=== PATIENT | female | born 1950 | race Caucasian/White ===

== ENCOUNTER → 2019-07-27 16:05 | Outpatient (CLI) | payer MEDICARE, SELFPAY ==
--- NOTE | 2019-07-27 16:23 | VDLE_ITS ---
Reason For Study: RLE PAIN RIGHT GSV is normal. CFV is compressible, spontaneous, phasic, competent and demonstrates normal augmentation. FV is compressible, spontaneous, phasic, competent and demonstrates normal augmentation. POP V is compressible, spontaneous, phasic, competent and demonstrates normal augmentation. T/P Trunk is compressible. PTV is compressible. RT PerV is compressible. Procedure Exam performed in department. The exam was diagnostic. A preliminary report was called and/or faxed to DR. Tina Staples @ [phone] @ 4:40 pm. Interpretation Summary Deep veins of the right lower extremity are patent and compressible segmentally. There is no evidence of right lower extremity deep vein thrombosis. Valvular competence appears intact within the proximal deep venous system on the right . The right great saphenous vein appears patent and compressible segmentally. Ordering Physician: Facundo Staples Referring Physician: Joe Mac Performed By: Felicia Tom, WALESKA, RVT
== END ==
PROVIDERS: Referring Provider Podiatrist Foot & Ankle Surgery; Visit Provider Podiatrist Foot & Ankle Surgery
DX: M79.661 Pain in right lower leg (principal)
CPT/HCPCS: 93971

== ENCOUNTER 2022-02-18 03:48 | Inpatient (IN) | payer MEDICARE, SELFPAY ==
[2022-02-18] VITALS (29 sets, daily range): BP systolic 89–214; BP diastolic 49–128; PULSE 85–125; RESP 12–31; TEMP 36.1–36.8; O2SAT 90–99; BMI 31.8; BMI 32.8
--- NOTE | 2022-02-18 03:55 | RAD_ITS ---
STUDY: X-RAY CHEST REASON FOR EXAM: Female, 71 years old. Difficulty breathing. TECHNIQUE: AP COMPARISON: None. FINDINGS: Hazy interstitial prominence in both lungs. No evidence of pneumothorax, pleural effusion or consolidation. The heart might be mildly enlarged, not well evaluated with AP portable technique. Trachea midline, no mediastinal widening. RAD/Chest 1 View (Portable) IMPRESSION: Hazy interstitial prominence in both lungs suspicious for either mild edema or atypical pneumonia. There may be mild cardiomegaly. Electronically Signed: Jayson Hi MD at 4:39 EDT Reading Location ID and State: [facility] / [place] Tel , Service support ,
--- NOTE | 2022-02-18 03:55 | EKG12_ITS ---
Test Reason : DYSRHYTHMIA Blood Pressure : / mmHG Vent. Rate : 116 BPM Atrial Rate : 116 BPM P-R Int : 132 ms QRS Dur : 108 ms QT Int : 336 ms P-R-T Axes : 068 068 060 degrees QTc Int : 467 ms Sinus tachycardia with frequent Premature ventricular complexes Nonspecific ST abnormality Abnormal ECG Confirmed by LISHA BUENROSTRO, MOY ([id number]), online content editor NATIVIDAD PARKS ([id number]) on 02/19/2022 9:48:39 AM Referred By: SAMUEL Confirmed By:MOY HUSAIN MD
[2022-02-18] MEDS: Nitroglycerin SL (ED/IMG/CATH) 0.4 MG TABLET SL (03:57)
[2022-02-18 04:16] LABS: Absolute Lymphocyte Count 8.02 X10^3/uL (0.83-4.51); Absolute Neutrophil Count 3.9 X10^3/uL (2.0-7.7); Basophil# 0.08 X10^3/uL; Basophil% 0.6 % (0-1); Differential Indicated SCAN CRITERIA MET; Eosinophil# 0.22 X10^3/uL; Eosinophils% 1.7 % (0-5); Hematocrit 45.8 % (37-47); Hemoglobin 14.9 g/dL (12.0-15.0); Lymphocyte # 8.02 X10^3/ul (0.83-4.51); Lymphocyte % 61.7 % (19-41); Mean Corp Hgb Conc 32.5 g/dL (32-36); Mean Corpuscular Hgb 31.3 pg (27.0-32.0); Mean Corpuscular Volume 96.2 fL (81-99); Mean Platelet Vol. 9.4 fl (6.2-12.0); Monocyte# 0.75 X10^3/uL; Monocyte% 5.8 % (0-10); NRBC Flagged by Analyzer 0 % (0-5); POSITIVE DIFFERENTIAL YES; POSITIVE MORPHOLOGY YES; Platelet Count 393 K/mm3 (150-450); RBC Distribution Width CV 13.2 % (11.6-14.6); RBC Distribution Width SD 46.6 fl (35.1-43.9); Red Blood Count 4.76 M/mm3 (4.2-5.4)
[2022-02-18 04:33] LABS: Anion Gap 13 (5-15); BUN 10 mg/dL (7-18); BUN/Creat Ratio 11.9 RATIO (10-20); Calcium,Total 8.9 mg/dL (8.5-10.1); Chloride 104 mmol/L (98-107); Creatinine, Serum 0.84 mg/dL (0.55-1.02); EST Glomerular Filtration Rate 71 mL/min (>60); Est Glom Filt Rate - Afr Amer 86 mL/min (>60); Estimated Creatinine Clearance 54.58 ml/min; Glucose 258 mg/dL (74-106); Magnesium 2.3 mg/dL (1.6-2.6); Potassium 4.3 mmol/L (3.5-5.1); Sodium Level 137 mmol/L (136-145); Troponin-I HS 54 pg/mL (3.0-54.0)
--- NOTE | 2022-02-18 04:44 | CT_ITS ---
STUDY: CTA CHEST REASON FOR EXAM: Female, 71 years old. Short of breath. Elevated WBC, low O2. RADIATION DOSAGE (If Supplied By Facility): CTDIvol = ( 12.62 ) mGy, DLP = ( 518.75 ) mGycm TECHNIQUE: The examination was performed with the intravenous administration of IV 100mL Isovue-370. Post-processing of the angiographic images was performed, with MIP reconstructed images. Individualized dose optimization techniques were used for this CT. COMPARISON: 02/18/2022 chest radiograph FINDINGS: Pulmonary arteries: No pulmonary embolus. Normal caliber. Heart: Thick-walled prominent in size left ventricle. No evidence of right heart strain. Calcific plaque within the coronary arteries, not well evaluated because of cardiac motion. Aorta: No thoracic aortic dissection or aneurysm. Lungs, pleura: Diffuse interstitial prominence and scattered patchy groundglass opacities throughout both lungs with small pleural effusions. Central airways patent. No consolidation or pneumothorax. Mediastinum: Mild paratracheal and bilateral hilar adenopathy. No other mass, no hematoma. Osseous:No acute osseous abnormality. Chest wall: No concerning findings. Upper abdomen: No acute findings. Any findings described in the findings sections and not included in the impression are incidental and do not require imaging follow-up. CT/CTA Chest W/WO Contrast IMPRESSION: Findings most likely represent congestive heart failure with pulmonary edema and small pleural effusions. Atypical pneumonia while possible is less likely particularly given the symmetry of the findings and the cardiomegaly. No pulmonary embolus or thoracic aortic dissection or aneurysm. Electronically Signed: Jayson Hi MD at 5:38 EDT Reading Location ID and State: [facility] / [place] Tel , Service support ,
[2022-02-18] MEDS: Furosemide 40 MG/4 ML Vial IV (04:51)
[2022-02-18 05:07] LABS: BNP,B-Type NATRIURETIC PEPTIDE 561.4 pg/mL (0-100)
--- NOTE | 2022-02-18 05:50 | EX.ED.DYSGE1 ---
HPI History of Present Illness Chief Complaint: Shortness of Breath Narrative Narrative: Patient is a 71-year-old female who states she has no significant past medical history and takes nothing but vitamins. She states she went to bed feeling normal then awoke early this morning with shortness of breath. She states she does not history of smoking or lung disorder and does not need supplemental oxygen and with the sudden onset of shortness of breath was concerned and presents for evaluation [facility] Home Medications ascorbate calcium (vitamin C) 500 mg capsule 100 mg PO DAILY 02/18/22 [History Last Taken Unknown] cholecalciferol (vitamin D3) 125 mcg (5,000 unit) tablet (Vitamin D3) 125 mcg PO DAILY 02/18/22 [History Last Taken Unknown] vitamin E 400 unit tablet 400 mg PO DAILY 02/18/22 [History Last Taken Unknown] Allergy/AdvReac Type Severity Reaction Status Date / Time No Known Allergies Allergy Verified 02/18/22 04:01 Family History Other Heart disease Surgical History H/O: hysterectomy Hx of appendectomy Hx of cholecystectomy Social History Smoking Status: Never smoker ROS ROS ED Constitutional Constitutional ED: Denies chills or fever(s) ENT ENT ED: Denies sore throat Cardiovascular Cardiovascular: Reports orthopnea; Denies chest pain Respiratory/Chest Respiratory/Chest: Reports dyspnea and orthopnea; Denies cough Gastrointestinal Gastrointestinal: Reports nausea; Denies abdominal pain, diarrhea or vomiting Genitourinary Genitourinary ED: Denies dysuria Musculoskeletal Musculoskeletal: Denies myalgias Integumentary Denies rash Neurologic Neurologic: Denies headache(s) Hematologic/Lymphatic Hematologic/Lymphatic: Denies easy bleeding or easy bruising EXAM Physical Exam Const Vital Signs: 02/18/22 03:48 02/18/22 03:48 02/18/22 03:56 Temperature 98.2 F Temperature Source Temporal Pulse Rate 89 Respiratory Rate 17 Respiratory Effort Respiratory Depth Respiratory Pattern Blood Pressure 214/128 H Blood Pressure Mean 156 Pulse Ox 90 94 Oxygen Delivery Method Nasal Cannula Bi-pap Oxygen Flow Rate (L/min) 6 Fraction of Inspired Oxygen (FIO2) 50 02/18/22 04:03 02/18/22 03:57 02/18/22 04:05 Temperature Temperature Source Pulse Rate 115 H Respiratory Rate Respiratory Effort Labored Respiratory Depth Respiratory Pattern Blood Pressure 194/128 H 190/119 H Blood Pressure Mean 142 Pulse Ox Oxygen Delivery Method Oxygen Flow Rate (L/min) Fraction of Inspired Oxygen (FIO2) 02/18/22 03:55 02/18/22 03:55 02/18/22 04:08 Temperature Temperature Source Pulse Rate 125 H Respiratory Rate 31 H 31 H Respiratory Effort Short of Breath Labored Accessory Muscle Use Respiratory Depth Shallow Respiratory Pattern Tachypnea Tachypnea Blood Pressure 178/121 H Blood Pressure Mean 140 Pulse Ox 95 95 Oxygen Delivery Method Bi-pap Oxygen Flow Rate (L/min) Fraction of Inspired Oxygen (FIO2) 40 40 02/18/22 05:09 02/18/22 05:30 Temperature Temperature Source Pulse Rate 97 Respiratory Rate 20 H Respiratory Effort Respiratory Depth Respiratory Pattern Blood Pressure 212/88 H 123/76 H Blood Pressure Mean 129 91 Pulse Ox 97 Oxygen Delivery Method Bi-pap Oxygen Flow Rate (L/min) Fraction of Inspired Oxygen (FIO2) 50 Positive well nourished, well developed and obese Constitutional Narrative: Patient is in moderate to severe respiratory distress with tachypnea retractions and accessory muscle use General Appearance ED: well developed Nutritional Appearance: obese HEENT Reports moist mucous membranes HEENT Narrative: No tongue or lip swelling no oral lesions no airway edema or compromise Eyes PERRL and EOMs intact bilaterally Neck supple and no JVD Resp Resp Narrative: Patient is in moderate to severe respiratory distress with tachypnea retractions and accessory muscle use. Breath sounds are diminished throughout with diffuse crackles present. Patient can only speak in 1-2 word sentences. Cardio regular rhythm Rate: tachycardic and other Other Details: Radial pulses are plus 2 out of 4 bilaterally they are equal and symmetric Carotid pulses are equal and symmetric as well GI non-tender and non-distended GI Narrative: Abdomen is soft nontender nondistended with hypoactive bowel sounds no voluntary guarding or rigidity. No pulsatile mass or fluid wave Auscultation: hypoactive bowel sounds Palpation: soft Extremity normal to inspection Extremity Narrative: No asymmetric edema no pitting edema negative Homans' sign bilaterally Neuro oriented x3 and CN's II-XII intact bilaterally Sensorium / Orientation: alert Psych Psych Narrative: Patient has a nervous/anxious affect Skin no rashes or lesions noted MDM MDM MDM Narrative Medical decision making narrative: Patient presented to the ER and respiratory distress with tachypnea accessory muscle use and retractions. Her room air pulse ox was only 80%. Her sudden onset of symptoms coupled with crackles diffusely is consistent with flash pulmonary edema although she did not have any frothy pink sputum. She was placed on BiPAP and given a sublingual nitro secondary to this. Once her kidney function returned as normal she was also given Lasix. The BiPAP and medication reduced her work of breathing and her pulse ox improved to 97% and her blood pressure normalized. The chest x-ray did not reveal any severe edema which is not consistent with her presentation so elected to perform a CTA. CTA revealed changes consistent with congestive heart failure and pulmonary edema which is most consistent with her physical exam. At this time the patient will be admitted to the ICU because of her BiPAP need and congestive heart failure. Medicine was contacted and does agree to accept the patient at this time. The patient's troponin did elevate from 54-194 but she does not complain of chest discomfort and he has no ST elevation noted on her EKG and therefore I feel this elevation is related to the pulmonary edema and vascular congestion and not true cardiac so therefore be trended in the ICU. Lab Data Attestation: I reviewed the patient's lab results. Labs: Laboratory Results - last 24 hr 02/18/22 02/18/22 02/18/22 04:00 04:00 04:00 WBC 13.0 H RBC 4.76 Hgb 14.9 Hct 45.8 MCV 96.2 MCH 31.3 MCHC 32.5 RDW Std Deviation 46.6 H RDW Coeff of Benja 13.2 Plt Count 393 MPV 9.4 Immature Gran % (Auto) 0.200 Neut % (Auto) 30.0 L Lymph % (Auto) 61.7 H [place] % (Auto) 5.8 Eos % (Auto) 1.7 Baso % (Auto) 0.6 Absolute Neuts (auto) 3.9 Absolute Lymphs (auto) 8.02 H Nucleated RBC % 0 Sodium 137 Potassium 4.3 Chloride 104 Carbon Dioxide 20.0 L Anion Gap 13 BUN 10 Creatinine 0.84 Estim Creat Clear Calc 54.58 Est GFR (MDRD) Af Amer 86 Est GFR (MDRD) Non-Af 71 BUN/Creatinine Ratio 11.9 Glucose 258 H Calcium 8.9 Magnesium 2.3 Troponin I High Sens 54 B-Natriuretic Peptide 561.4 H Radiography Diagnostic Testing: Clinical Impression(s) from Imaging Studies Chest X-Ray 02/18/22 03:55 IMPRESSION: Hazy interstitial prominence in both lungs suspicious for either mild edema or atypical pneumonia. There may be mild cardiomegaly. Electronically Signed: Jayson Hi MD at 4:39 EDT Reading Location ID and State: [facility] Tel , Service support , Chest CTA 02/18/22 04:44 IMPRESSION: Findings most likely represent congestive heart failure with pulmonary edema and small pleural effusions. Atypical pneumonia while possible is less likely particularly given the symmetry of the findings and the cardiomegaly. No pulmonary embolus or thoracic aortic dissection or aneurysm. Electronically Signed: Jayson Hi MD at 5:38 EDT Reading Location ID and State: [facility] Tel , Service support , 1 view chest x-ray as interpreted by the emergency medicine physician reveals vascular congestion bilaterally without acute infiltrate or pneumothorax Critical Care Time Critical Care Time: Yes Critical care time (excluding procedures): - (Critical care time of 33 minutes) Discharge Plan Dx/Rx/DC Orders Clinical Impression: Flash pulmonary edema, Heart failure, Elevated troponin, Acute respiratory failure with hypoxia Disposition Disposition: Acute Care Hospital [facility] Discharge Date/Time: 02/18/22 06:50
--- NOTE | 2022-02-18 05:58 | PCM.HP.STD ---
HPI - General General Date of Admission: 02/18/22 Date of Service: 02/18/22 Chief Complaint: Shortness of breath HPI Narrative RAINA MCDONALD, is a 71 F with no significant past medical history but on only multivitamins presents to the emergency department with shortness of breath that woke her up from her sleep. Associated with her symptoms was noisy breathing; and weakness. Patient was brought to the emergency department by patient's significant other with assistance as patient felt weak. Patient denies any other symptoms. Of note before presentation patient and her had a COVID-19 booster shot and every before that they had influenza shots. Initially patient was severely hypotensive when she arrived at the emergency department. Patient was given sublingual nitroglycerin and Lasix 40 mg IV push. She was placed on BiPAP at the ED. Aforementioned interventions improved her work of breathing. She became hypotensive at emergency department and a BiPAP was discontinued. Patient was then placed on nasal cannula oxygen. Patient's blood pressure subsequently improved. [facility] Medical History no medical history no medical history Home Medications ascorbate calcium (vitamin C) 500 mg capsule 100 mg PO DAILY 02/18/22 [History Last Taken Unknown] cholecalciferol (vitamin D3) 125 mcg (5,000 unit) tablet (Vitamin D3) 125 mcg PO DAILY 02/18/22 [History Last Taken Unknown] vitamin E 400 unit tablet 400 mg PO DAILY 02/18/22 [History Last Taken Unknown] Allergy/AdvReac Type Severity Reaction Status Date / Time No Known Allergies Allergy Verified 02/18/22 04:01 Family History Other Heart disease Surgical History H/O: hysterectomy Hx of appendectomy Hx of cholecystectomy Social History Smoking Status: Never smoker ROS ROS Narrative Pertinent positives and pertinent negatives as noted in HPI. All other systems were reviewed and are negative Vital Signs Vital Signs Vital Signs: 02/18/22 03:48 02/18/22 03:48 02/18/22 03:56 Temperature 98.2 F Temperature Source Temporal Pulse Rate 89 Respiratory Rate 17 Respiratory Effort Respiratory Depth Respiratory Pattern Blood Pressure 214/128 H Blood Pressure Mean 156 Pulse Ox 90 94 Oxygen Delivery Method Nasal Cannula Bi-pap Oxygen Flow Rate (L/min) 6 Fraction of Inspired Oxygen (FIO2) 50 02/18/22 04:03 02/18/22 03:57 02/18/22 04:05 Temperature Temperature Source Pulse Rate 115 H Respiratory Rate Respiratory Effort Labored Respiratory Depth Respiratory Pattern Blood Pressure 194/128 H 190/119 H Blood Pressure Mean 142 Pulse Ox Oxygen Delivery Method Oxygen Flow Rate (L/min) Fraction of Inspired Oxygen (FIO2) 02/18/22 03:55 02/18/22 03:55 02/18/22 04:08 Temperature Temperature Source Pulse Rate 125 H Respiratory Rate 31 H 31 H Respiratory Effort Short of Breath Labored Accessory Muscle Use Respiratory Depth Shallow Respiratory Pattern Tachypnea Tachypnea Blood Pressure 178/121 H Blood Pressure Mean 140 Pulse Ox 95 95 Oxygen Delivery Method Bi-pap Oxygen Flow Rate (L/min) Fraction of Inspired Oxygen (FIO2) 40 40 02/18/22 05:09 02/18/22 05:30 02/18/22 05:51 Temperature 97.9 F Temperature Source Temporal Pulse Rate 97 89 Respiratory Rate 20 H 27 H Respiratory Effort Respiratory Depth Respiratory Pattern Blood Pressure 212/88 H 123/76 H 123/73 H Blood Pressure Mean 129 91 89 Pulse Ox 97 98 Oxygen Delivery Method Bi-pap Bi-pap Oxygen Flow Rate (L/min) Fraction of Inspired Oxygen (FIO2) 50 50 Weight Weight: 84.3 kg Body Mass Index (BMI) 31.8 Physical Exam Narrative Physical exam: General: Well-nourished, well-developed. Head: Normocephalic, atraumatic, no tenderness Eyes: Vision is grossly intact. EOMI ENT, no trauma, moist mucous membranes, no rhinorrhea Neck: Nontender, full range of motion, no spinal tenderness, deformities, step-off CVS: Regular rate and rhythm. S1-S2 present. No murmur, gallop or rub. Respiratory : Tachypnea; chest wall nontender, no wheezing Abdomen: Soft, nontender, nondistended, normal bowel sounds, no masses : Deferred Back: Nontender, no CVA tenderness, no midline spinal tenderness, deformities, step-offs Extremities: Nontender full range of motion, no trauma Skin: Normal color, no trauma, abrasions Neuro: Alert, oriented, cranial nerves II through XII grossly intact. Psychiatry: Normal mood. Normal affect. Not depressed. Not anxious. Results Lab / Micro Data Result Diagrams: 02/18/22 04:00 02/18/22 04:00 Labs: Laboratory Results - last 24 hr 02/18/22 04:00: WBC 13.0 H, RBC 4.76, Hgb 14.9, Hct 45.8, MCV 96.2, MCH 31.3, MCHC 32.5, RDW Std Deviation 46.6 H, RDW Coeff of Benja 13.2, Plt Count 393, MPV 9.4, Immature Gran % (Auto) 0.200, Neut % (Auto) 30.0 L, Lymph % (Auto) 61.7 H, [place] % (Auto) 5.8, Eos % (Auto) 1.7, Baso % (Auto) 0.6, Absolute Neuts (auto) 3.9, Absolute Lymphs (auto) 8.02 H, Nucleated RBC % 0 02/18/22 04:00: Sodium 137, Potassium 4.3, Chloride 104, Carbon Dioxide 20.0 L, Anion Gap 13, BUN 10, Creatinine 0.84, Estim Creat Clear Calc 54.58, Est GFR (MDRD) Af Amer 86, Est GFR (MDRD) Non-Af 71, BUN/Creatinine Ratio 11.9, Glucose 258 H, Calcium 8.9, Magnesium 2.3, Troponin I High Sens 54 02/18/22 04:00: B-Natriuretic Peptide 561.4 H Radiology Impression Chest X-Ray 02/18/22 03:55 IMPRESSION: Hazy interstitial prominence in both lungs suspicious for either mild edema or atypical pneumonia. There may be mild cardiomegaly. Electronically Signed: Jayson Hi MD at 4:39 EDT Reading Location ID and State: [address] [place] [address] Tel , Service support , Chest CTA 02/18/22 04:44 IMPRESSION: Findings most likely represent congestive heart failure with pulmonary edema and small pleural effusions. Atypical pneumonia while possible is less likely particularly given the symmetry of the findings and the cardiomegaly. No pulmonary embolus or thoracic aortic dissection or aneurysm. Electronically Signed: Jayson Hi MD at 5:38 EDT Reading Location ID and State: [facility] / [place] Tel , Service support , Assessment & Plan Assessment/Plan (1) Flash pulmonary edema: (2) Heart failure: (3) Elevated troponin: PLAN: Plan Flash pulmonary edema/acute heart failure Placed on critical care bed at the ICU. Chest x-ray was visualized and independently interpreted and I agree with radiology interpretation of bilateral haziness and possibly mild cardiomegaly. Chest CT with pulmonary edema and small pleural effusions. Weight on admission to the floor; and then daily Strict I&O's BNP of 561.4. Received Lasix 40 mg IV push at the emergency department. Patient became transiently hypotensive with BiPAP; nitroglycerin and Lasix. Will start patient on Lasix drip. Transthoracic echocardiogram to evaluate left ventricular wall motion and systolic function. Cardiac diet Acute hypoxemic respiratory failure On presentation reportedly oxygen saturation was 80% on room air. Required BiPAP. With hypotension BiPAP was removed. Patient was subsequently placed on nasal cannula oxygen. At 4 L/min oxygen saturation was around 92%. Titrate oxygen. Elevated troponin Initial high sensitivity troponin was 54. Repeat was 194. Twelve-lead EKG with nonspecific ST and T abnormalities. Sinus tach with frequent PVCs. Likely secondary to demand ischemia. Trend. Leukocytosis White count of 13,000 with neutropenia and lymphocytosis. Likely reactive. Trend CBC. DVT prophylaxis: Subcutaneous Lovenox ordered Charges/Coding Visit Charges Inpatient E&M: 19970 Init Hosp L3
[2022-02-18 06:17] LABS: Troponin-I HS 194 pg/mL (3.0-54.0)
--- NOTE | 2022-02-18 07:09 | ECHOCS_ITS ---
Reason For Study: SOB Procedure This was a 2D Doppler, Color Flow transthoracic echocardiogram. The study was technically difficult. Exam performed portable in ICU/CCU. Left Ventricle Normal LV size. Moderate concentric left ventricular hypertrophy. Moderately severe global left ventricular systolic dysfunction. The estimated ejection fraction is 25 %. Stage 1 diastolic dysfunction. There is moderate to severe global hypokinesis of the left ventricle. Right Ventricle Normal RV size. Normal systolic function. Atria Normal left atrium. Normal right atrium. Mitral Valve Normal mitral valve. Mild (1+) mitral valve insufficiency. Tricuspid Valve Normal tricuspid valve. Mild (1+) tricuspid valve insufficiency. Pulmonary artery systolic pressure is 28 mmHg. Aortic Valve Trisinus/trileaflet aortic valve. Mild focal aortic valve calcification. Peak aortic valve gradient 60 mmHg. Mean aortic valve gradient 37 mmHg. Severe aortic stenosis. Calculated aortic valve area (continuity equation) is 0.6 cm2. Pulmonic Valve Normal pulmonic valve. Great Vessels Normal aortic root. The pulmonary artery is normal size. Normal inferior vena cava. Pericardium/Pleural No pericardial effusion. Medication Diluted definity 2ml given slow IV push to enhance endocardial definition. MMode/2D Measurements & Calculations LVIDd: 5.1 cm IVSd: 1.4 cm LVOT diam: 2.0 cm LVIDs: 4.2 cm LVPWd: 1.3 cm RVDd: 2.8 cm FS: 17.3 % LVOT area: 3.0 cm2 Ao root diam: 3.2 cm LAV(MOD-bp): 49.8 ml LVAd ap4: 33.1 cm2 LAV(MOD-bp) Indexed: 26.7 ml/m2 LVLd ap4: 7.2 cm LAV(MOD-sp2): 39.8 ml EDV(MOD-sp4): 123.7 ml LAV(MOD-sp4): 56.0 ml EDV(sp4-el): 129.3 ml LVAs ap4: 28.8 cm2 LVLs ap4: 7.1 cm ESV(MOD-sp4): 97.2 ml ESV(sp4-el): 98.8 ml EF(MOD-sp4): 21.4 % EF(sp4-el): 23.6 % LVAd ap2: 28.3 cm2 SV(MOD-sp4): 26.5 ml SV(MOD-sp2): 29.0 ml LVLd ap2: 7.2 cm EDV(MOD-sp2): 92.1 ml EDV(sp2-el): 94.1 ml LVAs ap2: 22.2 cm2 LVLs ap2: 6.7 cm ESV(MOD-sp2): 63.1 ml ESV(sp2-el): 62.3 ml EF(MOD-sp2): 31.5 % SV(sp4-el): 30.5 ml LA dimension(2D): 4.3 cm LA A4 area: 19.3 cm2 RA A4 area: 14.3 cm2 Doppler Measurements & Calculations MV E max joaquin: 61.5 cm/sec Lat Peak E' Joaquin: 4.0 cm/sec Med Peak E' Joaquin: 3.9 cm/sec MV A max joaquin: 93.8 cm/sec E/E' lat: 15.3 E/E' med: 15.6 MV E/A: 0.66 Ao V2 max: 388.8 cm/sec LV V1 max: 79.8 cm/sec SV(LVOT): 47.1 ml Ao max P.7 mmHg LV V1 max P.6 mmHg Ao V2 mean: 290.5 cm/sec LV V1 mean P.2 mmHg Ao mean P.3 mmHg LV V1 mean: 49.5 cm/sec Ao V2 VTI: 89.4 cm LV V1 VTI: 15.5 cm MELINDA(I,D): 0.53 cm2 MELINDA(V,D): 0.62 cm2 PA V2 max: 109.0 cm/sec TR max joaquin: 248.4 cm/sec TR max P.7 mmHg ECHO/Echo Complete W/ Contrast Interpretation Summary Normal LV size. Moderate concentric left ventricular hypertrophy. Moderately severe global left ventricular systolic dysfunction. The estimated ejection fraction is 25 %. There is moderate to severe global hypokinesis of the left ventricle. Stage 1 diastolic dysfunction. Mean aortic valve gradient 37 mmHg. Severe aortic stenosis. Calculated aortic valve area (continuity equation) is 0.6 cm2. Contrast injection was performed. Ordering Physician: Natanael Hartman Referring Physician: Joe Mac Performed By: Ruthann Gutierrez RDCS
--- NOTE | 2022-02-18 07:14 | EX.PCM.CONCC ---
Assessment & Plan Assessment/Plan (1) Acute respiratory failure with hypoxia: PLAN: Plan RECOMMENDATIONS: 1. Wean supplemental oxygen to maintain saturations at or above 90%. 2. Continue attempts at diuresis as tolerated by hemodynamics and renal function. 3. Obtain echocardiogram. 4. Consider cardiology evaluation. 5. Encourage incentive spirometer use and mobilize patient as tolerated. 6. The patient is medically stable for transfer out of the intensive care unit. IMPRESSIONS: 1. Acute hypoxemic respiratory failure secondary to flash pulmonary edema The patient presented to the hospital with rather acute onset shortness of breath in the setting of hypertensive emergency leading to flash pulmonary edema and the subsequent need for BiPAP support. However, the patient was only briefly on BiPAP, with improvement in her respiratory status after receiving nitroglycerin and Lasix. Accordingly, I would recommend that we continue to wean supplemental oxygen to maintain saturations at or above 90%. I would continue with attempts at diuresis as tolerated by hemodynamics and renal function. The patient would likely benefit from a cardiology evaluation while admitted to the hospital. I agree with obtaining an echocardiogram. 2. Troponin elevation Likely secondary to demand ischemia in the setting of #1. Agree with obtaining an echocardiogram. I would also consider a cardiology consultation as well. 3. Obesity/history of hypertension and hyperlipidemia Complicates care, management, recovery and prognosis. The patient will ultimately need to establish care with a new PCP and be restarted on a baseline antihypertensive regimen. This note was generated with [employer] dictation software. It may contain incorrect words, spelling, and punctuation that were not noted in checking the note before signing. HPI Consult Data Date of Consult: 02/18/22 HPI Narrative Reason for Consultation: Respiratory failure HPI Narrative: The patient is a 71-year-old female, with a history as outlined below, who presented to the emergency department this morning with rather acute onset shortness of breath. The patient is a lifelong non-smoker. She does report that she was previously diagnosed with hypertension and hyperlipidemia a multitude of years ago and was on medication at 1 point. However, after retiring, she lost her insurance coverage, and has been off of the aforementioned medications now for several years. She is currently without a primary care provider, but reported that she has an appointment with a new one coming up in February. On presentation to the emergency department, the patient was noted to be profoundly hypertensive with a blood pressure of 214/128 mmHg. She was notably tachycardic and tachypneic as well. Initial laboratory evaluation revealed a white blood cell count of 13,000. Chemistry profile was notable for a troponin of 194 and BNP of 561. CTA chest was obtained which showed no evidence of pulmonary embolism. Bilateral ground glass opacities were noted along with small pleural effusions. The patient was treated with sublingual nitro and IV Lasix. The patient was placed transiently on BiPAP. She was subsequently admitted to the medical intensive care unit. On arrival to the ICU, the patient was in no form of respiratory distress. She was maintaining appropriate oxygen saturations on 3 L/min via nasal cannula. She did report interval improvement in her respiratory status after receiving the diuretic. She denies any chest pain. [facility] Medical History no medical history Home Medications ascorbate calcium (vitamin C) 500 mg capsule 100 mg PO DAILY 02/18/22 [History Last Taken Unknown] cholecalciferol (vitamin D3) 125 mcg (5,000 unit) tablet (Vitamin D3) 125 mcg PO DAILY 02/18/22 [History Last Taken Unknown] vitamin E 400 unit tablet 400 mg PO DAILY 02/18/22 [History Last Taken Unknown] Allergy/AdvReac Type Severity Reaction Status Date / Time No Known Allergies Allergy Verified 02/18/22 04:01 Family History Other Heart disease Surgical History H/O: hysterectomy Hx of appendectomy Hx of cholecystectomy Social History Smoking Status: Never smoker ROS ROS Narrative 10 systems were reviewed with pertinent positives as noted in the HPI above. Physical Exam Const alert, oriented x3 and no apparent distress Nutritional Appearance: obese HEENT normocephalic, head/scalp atraumatic and moist oral mucous membranes Eyes PERRL, EOMs intact bilaterally and conjunctivae normal Neck supple General: trachea midline Chest inspection of chest normal Resp normal respiratory effort and no use of accessory muscles Auscultation: rales Cardio regular rate and regular rhythm Heart Sounds: murmur GI normal to inspection, nondistended, normoactive bowel sounds Extremity no clubbing, cyanosis or edema Skin no rashes or lesions noted Neuro oriented x3, CN's II-XII intact bilaterally and moves all extremities Psych cooperative and affect normal Lab / Micro Data Result Diagrams: 02/18/22 04:00 02/18/22 04:00 Labs: Laboratory Results - last 24 hr 02/18/22 04:00: WBC 13.0 H, RBC 4.76, Hgb 14.9, Hct 45.8, MCV 96.2, MCH 31.3, MCHC 32.5, RDW Std Deviation 46.6 H, RDW Coeff of Benja 13.2, Plt Count 393, MPV 9.4, Immature Gran % (Auto) 0.200, Neut % (Auto) 30.0 L, Lymph % (Auto) 61.7 H, [place] % (Auto) 5.8, Eos % (Auto) 1.7, Baso % (Auto) 0.6, Absolute Neuts (auto) 3.9, Absolute Lymphs (auto) 8.02 H, Nucleated RBC % 0 02/18/22 04:00: Sodium 137, Potassium 4.3, Chloride 104, Carbon Dioxide 20.0 L, Anion Gap 13, BUN 10, Creatinine 0.84, Estim Creat Clear Calc 54.58, Est GFR (MDRD) Af Amer 86, Est GFR (MDRD) Non-Af 71, BUN/Creatinine Ratio 11.9, Glucose 258 H, Calcium 8.9, Magnesium 2.3, Troponin I High Sens 54 02/18/22 04:00: B-Natriuretic Peptide 561.4 H 02/18/22 05:50: Troponin I High Sens 194 H* Radiology Impression Chest X-Ray 02/18/22 03:55 IMPRESSION: Hazy interstitial prominence in both lungs suspicious for either mild edema or atypical pneumonia. There may be mild cardiomegaly. Electronically Signed: Jayson Hi MD at 4:39 EDT Reading Location ID and State: [address] [place] [address] Tel , Service support , Chest CTA 02/18/22 04:44 IMPRESSION: Findings most likely represent congestive heart failure with pulmonary edema and small pleural effusions. Atypical pneumonia while possible is less likely particularly given the symmetry of the findings and the cardiomegaly. No pulmonary embolus or thoracic aortic dissection or aneurysm. Electronically Signed: Jayson Hi MD at 5:38 EDT Reading Location ID and State: [facility] / [place] Tel , Service support , Charges/Coding Visit Charges Inpatient E&M: 45902 Init Hosp L3
[2022-02-18] MEDS: Furosemide 500 MG in Empty Viaflex 50 mL 1 EACH CONT INF (09:54)
[2022-02-18] MEDS: Enoxaparin 40 MG/0.4 ML Syringe SC ×2 (09:56→13:13)
[2022-02-18 10:40] LABS: Troponin-I HS 276 pg/mL (3.0-54.0)
[2022-02-18] MEDS: Aspirin 325 MG Tablet PO (13:13)
[2022-02-18] MEDS: Atorvastatin Calcium 40 MG Tablet PO (13:13)
--- NOTE | 2022-02-18 13:44 | PN.HOSP_ITS ---
Subjective Subjective Patient seen and examined. She feels better today. Her breathing has improved. She denies any chest pain, palpitations, dizziness, nausea or vomiting. Troponins trended upwards and cardiology consulted. Objective Data Objective Data Vital Signs: Vital Signs Temp Pulse Resp BP Pulse Ox O2 Del Method O2 Flow Rate 97.5 F L 89 20 H 124/72 H 93 Nasal Cannula 2 02/18/22 13:00 02/18/22 13:00 02/18/22 13:00 02/18/22 13:00 02/18/22 13:00 02/18/22 13:20 02/18/22 13:20 FiO2 50 02/18/22 06:00 Oxygen Flow Rate (L/min) 2 Oxygen Delivery Method Nasal Cannula Weight: 184 lb 15.485 oz Body Mass Index (BMI) 32.8 Intake & Output: Intake and Output for Last 24 Hours 02/16/22 02/17/22 02/18/22 23:59 23:59 23:59 Intake Total 240 / 240 Output Total 1100 / 1100 Balance -860 / -860 Lab / Micro Data Result Diagrams: 02/18/22 04:00 02/18/22 04:00 Labs: Laboratory Results - last 24 hr 02/18/22 04:00: WBC 13.0 H, RBC 4.76, Hgb 14.9, Hct 45.8, MCV 96.2, MCH 31.3, MCHC 32.5, RDW Std Deviation 46.6 H, RDW Coeff of Benja 13.2, Plt Count 393, MPV 9.4, Immature Gran % (Auto) 0.200, Neut % (Auto) 30.0 L, Lymph % (Auto) 61.7 H, [place] % (Auto) 5.8, Eos % (Auto) 1.7, Baso % (Auto) 0.6, Absolute Neuts (auto) 3.9, Absolute Lymphs (auto) 8.02 H, Nucleated RBC % 0 02/18/22 04:00: Sodium 137, Potassium 4.3, Chloride 104, Carbon Dioxide 20.0 L, Anion Gap 13, BUN 10, Creatinine 0.84, Estim Creat Clear Calc 54.58, Est GFR (MDRD) Af Amer 86, Est GFR (MDRD) Non-Af 71, BUN/Creatinine Ratio 11.9, Glucose 258 H, Calcium 8.9, Magnesium 2.3, Troponin I High Sens 54 02/18/22 04:00: B-Natriuretic Peptide 561.4 H 02/18/22 05:50: Troponin I High Sens 194 H* 02/18/22 10:05: Troponin I High Sens 276 H* Radiography Diagnostic Testing: Radiology Impression Chest X-Ray 02/18/22 03:55 IMPRESSION: Hazy interstitial prominence in both lungs suspicious for either mild edema or atypical pneumonia. There may be mild cardiomegaly. Electronically Signed: Jayson Hi MD at 4:39 EDT Reading Location ID and State: [facility] [place] Tel , Service support , Chest CTA 02/18/22 04:44 IMPRESSION: Findings most likely represent congestive heart failure with pulmonary edema and small pleural effusions. Atypical pneumonia while possible is less likely particularly given the symmetry of the findings and the cardiomegaly. No pulmonary embolus or thoracic aortic dissection or aneurysm. Electronically Signed: Jayson Hi MD at 5:38 EDT Reading Location ID and State: [facility] Tel , Service support , Physical Exam Const alert, oriented x3 and no apparent distress HEENT head/scalp atraumatic, moist oral mucous membranes and oropharynx normal Head and Scalp: normocephalic Mouth: oral and palatal mucosa normal and dry mucous membranes Eyes PERRL, EOMs intact bilaterally and conjunctivae normal Resp Resp Narrative: diminished breath sounds bibasally, no wheezes or crackles. On 2L of oxygen by nasal canula Cardio regular rate, regular rhythm, S1 normal heart sound, S2 normal heart sound and no murmurs GI normal to inspection, nondistended, normoactive bowel sounds, soft to palpation and non-tender Extremity normal to inspection, full ROM and no clubbing, cyanosis or edema Neuro oriented x3, CN's II-XII intact bilaterally, moves all extremities and no focal motor deficits Sensorium / Orientation: awake and alert Motor Exam: strength 5/5 throughout Psych affect normal Assessment & Plan Assessment/Plan (1) Heart failure: (2) Acute respiratory failure with hypoxia: (3) NSTEMI, initial episode of care: PLAN: Plan #Acute heart failure with unknown EF * Being diuresed with IV Lasix drip. BNP was elevated. * Monitor intake and output. Fluid restriction 1500 cc daily. * Cardiology consulted. 2D echo ordered. * #Non-STEMI * Initial troponin was elevated and subsequently trended upwards. * Cardiology consulted. Started on aspirin and high intensity statin. Started on therapeutic Lovenox. * 2D echo ordered for tomorrow. * #Hypoxia due to acute heart failure * Was saturating at 80% on room air at time of presentation in the ED and required BiPAP. BiPAP subsequently resolved and is now on 2 L of oxygen by nasal cannula. * Titrate oxygen to maintain saturation above 90%. Breathing treatments with bronchodilators. * #Leucocytosis: likely reactive. No evidence of infection. Will monitor. DVT prophylaxis: placed on therapeutic lovenox Charges/Coding Visit Charges Inpatient E&M: 73286 Subs Hosp L3
--- NOTE | 2022-02-18 14:11 | CON.PCM.CA_ITS ---
Assessment & Plan Assessment/Plan (1) Flash pulmonary edema: (2) Hypertensive emergency: (3) Elevated troponin: (4) Acute respiratory failure with hypoxia: (5) NSTEMI, initial episode of care: PLAN: 71-year-old female who presented to the ER with acute onset of shortness of breath. Also she admitted to symptoms of epigastric and lower chest discomfort. Patient had history of hypertension hyperlipidemia however she was not following with her primary care physician and she was not taking any treatment. At this admission hypertension blood pressure was significant elevated in the range of 214-1 28 With the current treatment today her blood pressure is 124 mmHg, systolic blood pressure Also noted she had mild elevation of cardiac biomarkers with elevated high sensitive troponin. Cardiac care plan recommendation 1. Patient responding very well with the current treatment for hypertensive emergency and pulm edema Her symptoms of shortness of breath improving 2. Noted elevated cardiac biomarker which is likely a type II GA with demand myocardial ischemia. The EKG showed sinus tachycardia with no significant ST?T abnormalities. And currently patient has no symptoms of chest pain to report 3. We will review the echocardiogram and will continue to monitor on follow-up clinically 4. She had a heart murmur which is mid diastolic heart murmur in the aortic valve area and patient will require further assessment and evaluation with possible left heart catheterization/LV G and aortogram Based on the finding of the echocardiogram. #5 we will continue current treatment with atorvastatin, aspirin, enoxaparin, Lasix and nitroglycerin. HPI Consult Data Date of Consult: 02/18/22 HPI Narrative Reason for Consultation: With hypertensive emergency with pulm edema/non-STEMI HPI Narrative: RAINA MCDONALD, is a 71 F who presents [facility] Medical History no medical history Home Medications ascorbate calcium (vitamin C) 500 mg capsule 100 mg PO DAILY 02/18/22 [History Last Taken Unknown] cholecalciferol (vitamin D3) 125 mcg (5,000 unit) tablet (Vitamin D3) 125 mcg PO DAILY 02/18/22 [History Last Taken Unknown] vitamin E 400 unit tablet 400 mg PO DAILY 02/18/22 [History Last Taken Unknown] Allergy/AdvReac Type Severity Reaction Status Date / Time No Known Allergies Allergy Verified 02/18/22 04:01 Family History Other Heart disease Surgical History H/O: hysterectomy Hx of appendectomy Hx of cholecystectomy Social History Smoking Status: Never smoker Physical Exam Cardio Cardio Narrative: Patient seen and evaluated today in intensive care unit Symptoms of shortness of breath improving on the current treatment with diuretic and nitroglycerin Noted her cardiac rhythm is sinus rhythm Blood pressure is stable Cardiovascular exam S1-S2 regular She has mid diastolic murmur well heard in the aortic valve area No pericardial rub Chest examination diminished air entry bilateral notably on the right base with inspiratory rales. No lower extremity edema noted. Risk Stratification Risk Stratification Applicable: Yes Age >/= 65: Yes >/= 3 CAD Risk Factors (HTN, HLD, DM, family hx of CAD, or current smoker): Yes Aspirin Use in the Past 7 Days: Yes Severe Angina (>/= episodes in 24 hours): No EKG ST Changes >/= 0.5mm: No Positive Cardiac Marker: Yes CASS Risk Stratification Score: 4 CASS % Risk: 20% Risk Objective Data Vital Signs: Vital Signs Temp Pulse Resp BP Pulse Ox O2 Del Method O2 Flow Rate 97.5 F L 89 20 H 124/72 H 93 Nasal Cannula 2 02/18/22 13:00 02/18/22 13:00 02/18/22 13:00 02/18/22 13:00 02/18/22 13:00 02/18/22 13:20 02/18/22 13:20 FiO2 50 02/18/22 06:00 Oxygen Flow Rate (L/min) 2 Oxygen Delivery Method Nasal Cannula Weight: 184 lb 15.485 oz Body Mass Index (BMI) 32.8 Intake & Output: Intake and Output for Last 24 Hours 02/16/22 02/17/22 02/18/22 23:59 23:59 23:59 Intake Total 240 / 240 Output Total 1100 / 1100 Balance -860 / -860 Lab / Micro Data Result Diagrams: 02/18/22 04:00 02/18/22 04:00 Labs: Laboratory Results - last 24 hr 02/18/22 04:00: WBC 13.0 H, RBC 4.76, Hgb 14.9, Hct 45.8, MCV 96.2, MCH 31.3, MCHC 32.5, RDW Std Deviation 46.6 H, RDW Coeff of Benja 13.2, Plt Count 393, MPV 9.4, Immature Gran % (Auto) 0.200, Neut % (Auto) 30.0 L, Lymph % (Auto) 61.7 H, [place] % (Auto) 5.8, Eos % (Auto) 1.7, Baso % (Auto) 0.6, Absolute Neuts (auto) 3.9, Absolute Lymphs (auto) 8.02 H, Nucleated RBC % 0 02/18/22 04:00: Sodium 137, Potassium 4.3, Chloride 104, Carbon Dioxide 20.0 L, Anion Gap 13, BUN 10, Creatinine 0.84, Estim Creat Clear Calc 54.58, Est GFR (MDRD) Af Amer 86, Est GFR (MDRD) Non-Af 71, BUN/Creatinine Ratio 11.9, Glucose 258 H, Calcium 8.9, Magnesium 2.3, Troponin I High Sens 54 02/18/22 04:00: B-Natriuretic Peptide 561.4 H 02/18/22 05:50: Troponin I High Sens 194 H* 02/18/22 10:05: Troponin I High Sens 276 H* Cardiology Labs/Tests 02/18/22 04:00: WBC 13.0 H, RBC 4.76, Hgb 14.9, Hct 45.8, MCV 96.2, MCH 31.3, MCHC 32.5, Plt Count 393, MPV 9.4, Immature Gran % (Auto) 0.200, Neut % (Auto) 30.0 L, Lymph % (Auto) 61.7 H, [place] % (Auto) 5.8, Eos % (Auto) 1.7, Baso % (Auto) 0.6, Absolute Neuts (auto) 3.9, Nucleated RBC % 0 02/18/22 04:00: Sodium 137, Potassium 4.3, Chloride 104, Carbon Dioxide 20.0 L, Anion Gap 13, BUN 10, Creatinine 0.84, Est GFR (MDRD) Af Amer 86, Est GFR (MDRD) Non-Af 71, BUN/Creatinine Ratio 11.9, Glucose 258 H, Calcium 8.9, Magnesium 2.3 02/18/22 04:00: B-Natriuretic Peptide 561.4 H Rhythm: EKG: ECHO: Stress Test: Cardiac Cath: PCI: CT Surgery: Holter monitor: EPS: PPM: CXR: Chest CT Scan: Radiography Diagnostic Testing: Radiology Impression Chest X-Ray 02/18/22 03:55 IMPRESSION: Hazy interstitial prominence in both lungs suspicious for either mild edema or atypical pneumonia. There may be mild cardiomegaly. Electronically Signed: Jayson Hi MD at 4:39 EDT Reading Location ID and State: [facility] Tel , Service support , Chest CTA 02/18/22 04:44 IMPRESSION: Findings most likely represent congestive heart failure with pulmonary edema and small pleural effusions. Atypical pneumonia while possible is less likely particularly given the symmetry of the findings and the cardiomegaly. No pulmonary embolus or thoracic aortic dissection or aneurysm. Electronically Signed: Jayson Hi MD at 5:38 EDT Reading Location ID and State: [facility] / [place] Tel , Service support ,
[2022-02-18] MEDS: MELATONIN 10 MG TABLET PO (21:02)
[2022-02-18] MEDS: Enoxaparin 80 MG/0.8 ML Syringe SC (21:02)
[2022-02-18] MEDS: 0.9% Saline Lock 10 ML Syringe IV (21:03)
[2022-02-19] VITALS (14 sets, daily range): BP systolic 92–110; BP diastolic 55–70; PULSE 74–93; RESP 17–18; TEMP 36.2–36.6; O2SAT 91–97
[2022-02-19 03:33] LABS: Absolute Lymphocyte Count 4.08 X10^3/uL (0.83-4.51); Absolute Neutrophil Count 4.8 X10^3/uL (2.0-7.7); Basophil# 0.04 X10^3/uL; Basophil% 0.4 % (0-1); Eosinophil# 0.08 X10^3/uL; Eosinophils% 0.8 % (0-5); Hematocrit 39.1 % (37-47); Hemoglobin 13.2 g/dL (12.0-15.0); Lymphocyte # 4.08 X10^3/ul (0.83-4.51); Lymphocyte % 41.6 % (19-41); Mean Corp Hgb Conc 33.8 g/dL (32-36); Mean Corpuscular Hgb 31.3 pg (27.0-32.0); Mean Corpuscular Volume 92.7 fL (81-99); Mean Platelet Vol. 8.9 fl (6.2-12.0); Monocyte# 0.81 X10^3/uL; Monocyte% 8.3 % (0-10); NRBC Flagged by Analyzer 0 % (0-5); Neutrophil # 4.77 X10^3/uL (2.7-7.7); Neutrophil % 48.7 % (47-70); Platelet Count 327 K/mm3 (150-450); RBC Distribution Width CV 13.3 % (11.6-14.6); Red Blood Count 4.22 M/mm3 (4.2-5.4); White Blood Count 9.8 K/mm3 (4.4-11.0)
[2022-02-19 03:52] LABS: Anion Gap 12 (5-15); BUN 25 mg/dL (7-18); Calcium,Total 9.1 mg/dL (8.5-10.1); Chloride 101 mmol/L (98-107); Creatinine, Serum 0.96 mg/dL (0.55-1.02); EST Glomerular Filtration Rate 61 mL/min (>60); Est Glom Filt Rate - Afr Amer 74 mL/min (>60); Estimated Creatinine Clearance 45.75 ml/min; Glucose 112 mg/dL (74-106); Potassium 3.8 mmol/L (3.5-5.1); Sodium Level 138 mmol/L (136-145)
[2022-02-19] MEDS: 0.9% Saline Lock 10 ML Syringe IV (06:27)
[2022-02-19] MEDS: Aspirin 325 MG Tablet PO (06:27)
--- NOTE | 2022-02-19 07:12 | EKG12_ITS ---
Test Reason : PRE HEART CATH Blood Pressure : / mmHG Vent. Rate : 080 BPM Atrial Rate : 080 BPM P-R Int : 148 ms QRS Dur : 100 ms QT Int : 420 ms P-R-T Axes : 026 016 146 degrees QTc Int : 484 ms Normal sinus rhythm Marked ST abnormality, possible lateral subendocardial injury Abnormal ECG When compared with ECG of 18-FEB-2022 04:01, MANUAL COMPARISON REQUIRED, DATA IS UNCONFIRMED Confirmed by LISHA BUENROSTRO, MOY ([id number]), graphics editor NATIVIDAD PARKS ([id number]) on 02/19/2022 2:11:58 PM Referred By: MELISSA Confirmed By:MOY HUSAIN MD
--- NOTE | 2022-02-19 07:20 | PN.CC_ITS ---
Assessment & Plan Assessment/Plan (1) Acute respiratory failure with hypoxia: PLAN: Plan RECOMMENDATIONS: 1. Wean supplemental oxygen to maintain saturations at or above 90%. 2. Lasix drip per cardiology 3. Await echocardiogram. Heart catheterization at 9:30 AM 4. Walking oximetry prior to discharge 5. Encourage incentive spirometer use and mobilize patient as tolerated. 6. Anticipate transfer to PCU following heart cath IMPRESSIONS: 1. Acute hypoxemic respiratory failure secondary to flash pulmonary edema The patient presented to the hospital with rather acute onset shortness of breath in the setting of hypertensive emergency leading to flash pulmonary edema and the subsequent need for BiPAP support. BiPAP was quickly discontinued following Lasix and nitroglycerin. Oxygenation has significantly improved with diuresis. I would continue with attempts at diuresis as tolerated by hemodynamics and renal function. Patient to have an echocardiogram this morning with potential heart catheterization at 930. Likely okay to transfer to PCU following heart cath. Patient will need a walking oximetry prior to discharge 2. Troponin elevation Likely secondary to demand ischemia in the setting of #1. Agree with obtaining an echocardiogram. Cardiology following. 3. Obesity/history of hypertension and hyperlipidemia Complicates care, management, recovery and prognosis. The patient will ultimately need to establish care with a new PCP for medical optimization This note was generated with [employer] dictation software. It may contain incorrect words, spelling, and punctuation that were not noted in checking the note before signing. Subjective Subjective Patient did well overnight. No acute issues have been reported. Patient is to have a heart cath this morning. Patient remains on a Lasix drip. Blood pressures have been adequate. Patient does remain on nasal cannula oxygen to maintain saturations. Objective Data Objective Data Vital Signs: Vital Signs Temp Pulse Resp BP Pulse Ox O2 Del Method O2 Flow Rate 36.2 C L 93 18 105/64 97 Room Air 2 02/19/22 06:25 02/19/22 06:25 02/19/22 06:25 02/19/22 06:25 02/19/22 06:25 02/19/22 06:25 02/19/22 03:30 FiO2 50 02/18/22 06:00 Oxygen Flow Rate (L/min) 2 Oxygen Delivery Method Room Air Weight: 82.6 kg Body Mass Index (BMI) 32.8 Intake & Output: Intake and Output for Last 24 Hours 1002/18/22 02/19/22 23:59 23:59 23:59 Intake Total 680 / 680 Output Total 2400 / 2400 Balance -1720 / -1720 Lab / Micro Data Attestation: I reviewed the patient's lab results. Result Diagrams: 02/19/22 03:26 02/19/22 03:26 Labs: Laboratory Results - last 24 hr 02/18/22 10:05: Troponin I High Sens 276 H* 02/19/22 03:26: WBC 9.8, RBC 4.22, Hgb 13.2, Hct 39.1, MCV 92.7, MCH 31.3, MCHC 33.8, RDW Std Deviation 45.0 H, RDW Coeff of Benja 13.3, Plt Count 327, MPV 8.9, Immature Gran % (Auto) 0.200, Neut % (Auto) 48.7, Lymph % (Auto) 41.6 H, [place] % (Auto) 8.3, Eos % (Auto) 0.8, Baso % (Auto) 0.4, Absolute Neuts (auto) 4.8, Absolute Lymphs (auto) 4.08, Nucleated RBC % 0 02/19/22 03:26: Sodium 138, Potassium 3.8, Chloride 101, Carbon Dioxide 25.0, Anion Gap 12, BUN 25 H, Creatinine 0.96, Estim Creat Clear Calc 45.75, Est GFR (MDRD) Af Amer 74, Est GFR (MDRD) Non-Af 61, BUN/Creatinine Ratio 26.0 H, Glucose 112 H, Calcium 9.1 Physical Exam Const alert, oriented x3 and no apparent distress Constitutional Narrative: No conversational dyspnea Nutritional Appearance: obese HEENT normocephalic, head/scalp atraumatic and moist oral mucous membranes Eyes PERRL, EOMs intact bilaterally and conjunctivae normal Neck supple General: trachea midline Chest inspection of chest normal Resp normal respiratory effort and no use of accessory muscles Auscultation: diminished lung sounds; Negative for rales, rhonchi or wheezes Cardio regular rate, regular rhythm, S1 normal heart sound, S2 normal heart sound, no murmurs, no rub and no gallops Heart Sounds: murmur GI normal to inspection, nondistended, normoactive bowel sounds Extremity no clubbing, cyanosis or edema Skin no rashes or lesions noted Neuro oriented x3, CN's II-XII intact bilaterally and moves all extremities Psych cooperative and affect normal Charges/Coding Visit Charges Inpatient E&M: 52724 Subs Hosp L2
--- NOTE | 2022-02-19 09:37 | CASEMGMT ---
Tertiary facilities in-network with patient's insurance: [facility], [facility], [facility], [facility], , [facility], [facility]
--- NOTE | 2022-02-19 10:10 | PN.CARD_ITS ---
Objective Data Vital Signs: Vital Signs Temp Pulse Resp BP Pulse Ox O2 Del Method O2 Flow Rate 97.1 F L 93 18 105/64 93 Nasal Cannula 2 02/19/22 06:25 02/19/22 06:25 02/19/22 06:25 02/19/22 06:25 02/19/22 07:25 02/19/22 08:15 02/19/22 08:15 FiO2 50 02/18/22 06:00 Oxygen Flow Rate (L/min) 2 Oxygen Delivery Method Nasal Cannula Weight: 182 lb 1.629 oz Body Mass Index (BMI) 32.8 Intake & Output: Intake and Output for Last 24 Hours 02/17/22 02/18/22 02/19/22 23:59 23:59 23:59 Intake Total 680 / 680 Output Total 2400 / 2400 Balance -1720 / -1720 Lab / Micro Data Result Diagrams: 02/19/22 03:26 02/19/22 03:26 Labs: Laboratory Results - last 24 hr 02/18/22 10:05: Troponin I High Sens 276 H* 02/19/22 03:26: WBC 9.8, RBC 4.22, Hgb 13.2, Hct 39.1, MCV 92.7, MCH 31.3, MCHC 33.8, RDW Std Deviation 45.0 H, RDW Coeff of Benja 13.3, Plt Count 327, MPV 8.9, Immature Gran % (Auto) 0.200, Neut % (Auto) 48.7, Lymph % (Auto) 41.6 H, [place] % (Auto) 8.3, Eos % (Auto) 0.8, Baso % (Auto) 0.4, Absolute Neuts (auto) 4.8, Absolute Lymphs (auto) 4.08, Nucleated RBC % 0 02/19/22 03:26: Sodium 138, Potassium 3.8, Chloride 101, Carbon Dioxide 25.0, Anion Gap 12, BUN 25 H, Creatinine 0.96, Estim Creat Clear Calc 45.75, Est GFR (MDRD) Af Amer 74, Est GFR (MDRD) Non-Af 61, BUN/Creatinine Ratio 26.0 H, Glucose 112 H, Calcium 9.1 Cardiology Labs/Tests 02/19/22 03:26: WBC 9.8, RBC 4.22, Hgb 13.2, Hct 39.1, MCV 92.7, MCH 31.3, MCHC 33.8, Plt Count 327, MPV 8.9, Immature Gran % (Auto) 0.200, Neut % (Auto) 48.7, Lymph % (Auto) 41.6 H, [place] % (Auto) 8.3, Eos % (Auto) 0.8, Baso % (Auto) 0.4, Absolute Neuts (auto) 4.8, Nucleated RBC % 0 02/19/22 03:26: Sodium 138, Potassium 3.8, Chloride 101, Carbon Dioxide 25.0, Anion Gap 12, BUN 25 H, Creatinine 0.96, Est GFR (MDRD) Af Amer 74, Est GFR (MDRD) Non-Af 61, BUN/Creatinine Ratio 26.0 H, Glucose 112 H, Calcium 9.1 Rhythm: EKG: ECHO: Stress Test: Cardiac Cath: PCI: CT Surgery: Holter monitor: EPS: PPM: CXR: Chest CT Scan: Radiography Diagnostic Testing: Radiology Impression Echocardiogram 02/18/22 07:09 Interpretation Summary Normal LV size. Moderate concentric left ventricular hypertrophy. Moderately severe global left ventricular systolic dysfunction. The estimated ejection fraction is 25 %. There is moderate to severe global hypokinesis of the left ventricle. Stage 1 diastolic dysfunction. Mean aortic valve gradient 37 mmHg. Severe aortic stenosis. Calculated aortic valve area (continuity equation) is 0.6 cm2. Contrast injection was performed. Ordering Physician: Natanael Hartman Referring Physician: Joe Mac Performed By: Ruthann Gutierrez RDCS Physical Exam Const alert, oriented x3 and no apparent distress General Appearance: cooperative HEENT hearing grossly normal bilaterally Head and Scalp: atraumatic Eyes EOMs intact bilaterally Neck General: normal visual inspection Chest inspection of chest normal and palpation of chest normal Resp normal respiratory effort Auscultation: clear to auscultation bilaterally Cardio regular rate, regular rhythm, S1 normal heart sound and S2 normal heart sound Jugular Venous Distention: JVD Heart Sounds: murmur systolic GI normal to inspection, nondistended, normoactive bowel sounds Extremity normal capillary refill and no pedal edema Peripheral Pulses: Yes pulses 2+ throughout and femoral pulses present Skin no rashes or lesions noted Neuro oriented x3 and CN's II-XII intact bilaterally Psych Appearance: grossly normal and appropriate Assessment & Plan Assessment/Plan (1) Heart failure: PLAN: Present with heart failure with reduced ejection fraction. Her estimated ejection fraction is about 25% globally my recommendation at this time is to start her on Lasix 40 mg twice a day together with potassium supplementation. Because she has severe aortic stenosis I think that an ONDINA inhibitor and ARB are contraindicated at this time. * Her blood pressure is also noted to be reduced and I will be hesitant about adding a beta-josie until her blood pressure is much improved. (2) NSTEMI, initial episode of care: PLAN: She did have mild cardiac enzyme abnormality. I suspect the above is on the basis of demand ischemia. (3) Aortic stenosis: PLAN: She does have severe aortic stenosis with a mean gradient close to 40 mmHg. This was also confirmed by the cardiac catheterization. She has minimal coronary artery disease. * Recommendation will be to refer her for a TAVR evaluation. This will be done as an outpatient. * * Thank you for allowing me to participate in the care of your patient. Please don't hesitate to call if any issues arise.
--- NOTE | 2022-02-19 10:39 | CL.D_ITS ---
Patient Name: RAINA MCDONALD Study Date: 02/19/2022 Performing: Aryan Lawrence MD Ht: 63 inches 160.02 cm : 1950 Wt: 182.3 lbs 82.6 kg Age: 71 Gender: female BSA: 1.86 PROCEDURE(S) PERFORMED DC01-(15844)LHC/COR/LV CLINICAL PROFILE AND INDICATIONS Indications: Suspected CAD Heart Failure: NYHA Class: 3, Newly Diagnosed: Yes, Heart Failure Type: Systolic Stress/Imaging Stress/Image Study Performed: No CAD Presentations: Other: SOB/CHF CONCLUSIONS Severe aortic stenosis with a peak to peak gradient of about 70 mmHg and moderately severe left ventricular systolic dysfunction with estimated ejection fraction of 25% RECOMMENDATIONS TAVR vrs AVR consult DESCRIPTION OF PROCEDURE The patient arrived to the procedure lab. The risks and benefits of the procedure as well as a full description of our services here and current unavailability of surgical backup were fully explained to the patient and/or their significant other prior to the catheterization. The Timeout was completed, verifying the correct patient and procedure. The patient's procedural site was prepped and draped in the usual fashion. Local anesthetic was given subcutaneously to right radial region with Lidocaine 2%. Using a modified Seldinger technique, arterial access was obtained via the right radial artery, a 6Fr sheath was inserted. Left Coronary Artery selective angiography was performed in multiple views using a 5 Fr. 4.0 Gates catheter. Right Coronary Artery selective angiography was then performed in multiple views using a 5 Fr. 4.0 Gates catheter. Left Ventriculography was performed in HODGE projection using a 5 Fr. Pigtail catheter. LV to AO pullback pressures were then recorded.The arterial sheath was pulled and a TR Band was applied for hemostasis CORONARY ANGIOGRAPHY DOMINANCE: Right Dominant LEFT HEART ASSESSMENT Left Ventricular Ejection Fraction: by LV Gram 25 % Global Hypokinesis - Severe Depressed Left Ventricular systolic function LEFT MAIN: Angiographically normal LEFT ANTERIOR DESCENDING ARTERY: Mild luminal irregularities less than 30% CIRCUMFLEX ARTERY: Mild luminal irregularities less than 30% RIGHT CORONARY ARTERY: Mild luminal irregularities VALVE FINDINGS: Aortic Valve Calcification - severe Aortic Valve Stenosis - severe COMPLICATIONS No Complications PROCEDURE MEDICATIONS Versed 1 mg IV Fentanyl 50 mcg IV Oxygen: 2 L/min via nasal cannula Heparin given IA 02/19/2022 09:39:48 Verapamil 2.5mg, 3000 units of Heparin given IA 02/19/2022 09:39:48 SUMMARY OF HEMODYNAMIC DATA Time AIR REST ECG 09:11:47 AO 110/78 (68) SA 09:44:10 LV 176/8, 15 09:52:03 LV 173/8, 14 09:52:12 LV 170/10, 16 09:52:57 LVp 174/11, 17 09:53:08 AOp 97/59 (75) 09:53:15 Signed By Aryan Lawrence MD On 02/19/2022 10:38:44 Aryan Lawrence MD
[2022-02-19] MEDS: 0.9% Normal Saline 1,000 ML 40 ML IV (10:41)
[2022-02-19] MEDS: Vitamin E 400 UNITS Capsule PO (10:41)
[2022-02-19] MEDS: Cholecalciferol (Vit D3) 125 MCG CAPSULE (5,000 UNITS) PO (10:41)
--- NOTE | 2022-02-19 11:15 | CASEMGMT ---
RN ADY Face to Face with patient for initial transition planning/care coordination assessment. RN CM introduced self and role at [facility]. Patient lying in bed, alert and oriented, and daughter at bedside. Patient willing to participate in assessment and is able to answer all questions appropriately. Care providers, pharmacy, and demographics verified. Patient wishes to discharge home, denies need for home health at this time. Patient states she has no further needs or concerns at this time. CM to follow for discharge planning needs that may arise. PCP: Luis Specialists: none Preferred Pharmacy: [facility] at discharge Insurance: [place] [facility] Prescription Benefit: yes Living Will/HPOA: none LNOK: , daughter Living Arrangements: patient lives with in a single story duplex with 2 steps and railing to enter the home. Patient states she is independent at home. Transportation: self, DME/HHC: Patient states she has cane, walker, and wheelchair at home. No previous HHC or SNF. Disposition Plan: Patient to discharge home with family support and follow-up plans in place. Jyoti PARTIDA, RN, CM
--- NOTE | 2022-02-19 15:06 | DCINST_ITS ---
Discharge Instructions Diet Discharge Diet: No restrictions Activity Discharge Activity: Return to Normal Activity Weight Bearing Status: Full weight bearing Follow Up Care Test Results: Test results from this visit will be discussed in further detail at your follow- up appointment, if applicable. Discharge Plan Admission Admit Date/Time: 02/18/22 07:09 Primary Reason for Your Visit: Non Stemi, Congestive heart failure Attending Provider: Jose Elias Garcia Primary Care Provider: Cuauhtemoc Smith Consulting Providers: Natanael Hartman ; Abrahan Fowler ; Emre Quezada ; Nargis Mota Discharge Orders/Prescriptions Prescriptions: New furosemide 40 mg Tablet 40 mg PO BIDLX Qty: 60 0RF atorvastatin 40 mg Tablet 40 mg PO QHS Qty: 30 0RF potassium chloride [Klor-Con M20] 20 mEq Tablet,Er Particles/Crystals 20 meq PO BIDCM Qty: 60 0RF Continued ascorbate calcium (vitamin C) 500 mg Capsule 100 mg PO DAILY cholecalciferol (vitamin D3) [Vitamin D3] 125 mcg (5,000 unit) Tablet 125 mcg PO DAILY melatonin 10 mg Tablet 10 mg PO QHS aspirin 81 mg Tablet 81 mg PO DAILY Discontinued vitamin E 400 unit Tablet 400 mg PO DAILY potassium 99 mg Tablet 99 mg PO DAILY Referrals / Follow Up: Aryan Lawrence MD [Med Staff - Active Staff] - Within 2 Weeks (call office to schedule appointment) Cuauhtemoc Smith DO [Primary Care Provider] - See Referral Note (within 2-3 weeks) Disposition Disposition (needs filled in before D/C Order can be placed): Home, Self Care
--- NOTE | 2022-02-19 15:18 | DS.PCM_ITS ---
Providers Date of Admission: 02/18/22 Date of Discharge: 02/19/22 Primary Care Physician: Dr. Cuauhtemoc Smith, Consultations 02/18/22 07:09 Consult: Computational Sciences Professor / Pulmonary Medicine Routine Consulting Provider: Emre Quezada Reason for Consult: Acute hypoxemic respiratory failure EMERGENT Consult: No MD Notified: Yes Date Notified: 02/18/22 Time Notified: 06:41 Method of Notification: Verbal 02/18/22 07:16 Consult: Cardiology Routine Consulting Provider: Abrahan Fowler Reason for Consult: nonstemi EMERGENT Consult: No Notified: Yes Date Notified: 02/18/22 Time Notified: 07:16 Method of Notification: Text Reason For Visit: ACUTE HEART FAILURE/FLASH PULMONARY EDEMA Diagnosis Discharge Diagnosis (1) NSTEMI, initial episode of care: Status: Resolved Code(s): I21.4 - Non-ST elevation (NSTEMI) myocardial infarction Plan 1. Non-STEMI #2 acute systolic congestive heart failure #3 severe aortic stenosis #4 acute hypoxic respiratory failure secondary to flash pulmonary edema #5 essential hypertension #6 hyperlipidemia #7 nonocclusive coronary artery disease #8 nonischemic cardiomyopathy Medications at Discharge Home Medications ascorbate calcium (vitamin C) 500 mg capsule 100 mg PO DAILY 02/18/22 aspirin 81 mg tablet 81 mg PO DAILY antiplatelet 02/18/22 cholecalciferol (vitamin D3) 125 mcg (5,000 unit) tablet (Vitamin D3) 125 mcg PO DAILY 02/18/22 melatonin 10 mg tablet 10 mg PO QHS sleep 02/18/22 atorvastatin 40 mg tablet 40 mg PO QHS #30 tabs 02/19/22 furosemide 40 mg tablet 40 mg PO BIDLX #60 tabs 02/19/22 potassium chloride 20 mEq tablet,extended release(part/cryst) (Klor-Con M) 20 meq PO BIDCM #60 tabs 02/19/22 Hospital Course Operations None Procedures 2-D Echocardiogram and Cardiac catheterization Summary of Care Provided Minutes Spent on Discharge: 31 Hospital Course: The 11-year-old white female was seen in the emergency room at [facility] with complaints of shortness of breath when she woke earlier in the morning. On examination in the ER, patient had tachypnea, accessory muscle use, and retractions, pulse ox on room air was only 80%, she was placed on BiPAP and given a sublingual nitroglycerin. After labs returned she was also given IV Lasix. Chest x-ray did not reveal any severe edema so she underwent a CTA CTA revealed changes consistent with congestive heart failure and pulmonary edema. Patient was admitted to ICU due to her BiPAP need and acute congestive heart failure, patient's troponin went initially in the ER from 54-1 94, there is no ST elevation noted on her EKG. Patient was seen in consultation by critical care and cardiology, she was kept on IV Lasix, she was believed to have had a non-STEMI and underwent a cardiac catheterization which showed severe aortic stenosis and a low ejection fraction of 25%, there was noted to be nonocclusive coronary artery disease. Patient's medications were adjusted by cardiology, she was weaned off oxygen and did not require supplemental oxygen at the time of discharge. On 02/19/2022, patient was seen and examined: On examination she appeared in good health and spirits, she does not appear to be in any distress. Vital signs as documented. Skin warm and dry and without overt rashes. Neck without JVD, thyroid appears normal, trachea is midline, neck is supple. Lungs clear, normal air movement was noted. Heart exam notable for regular rhythm, there is a 2/6 systolic murmur noted at the left sternal border and apex, there were no rubs or gallops. Abdomen unremarkable and without evidence of organomegaly, masses, or abdominal aortic enlargement, bowel sounds are present in all 4 quadrants, no abdominal tenderness was noted. Extremities nonedematous, no cyanosis was noted, no clubbing was noted. Neuro: Cranial nerves II through XII are grossly intact, no focal motor deficits were noted, sensation to light touch and pinprick is intact, motor exam 5/5 throughout. Psych: Patient is alert and oriented x3, she does not appear anxious or depressed, she does not appear agitated. Patient was discharged home in stable condition on 02/19/2022 Weight / BMI Weight Weight: 82.6 kg Body Mass Index (BMI) 32.8 ABG / Lab / Microbiology Data Result Diagrams: 02/19/22 03:26 02/19/22 03:26 Laboratory: Laboratory Results - last 24 hr 02/19/22 03:26: WBC 9.8, RBC 4.22, Hgb 13.2, Hct 39.1, MCV 92.7, MCH 31.3, MCHC 33.8, RDW Std Deviation 45.0 H, RDW Coeff of Benja 13.3, Plt Count 327, MPV 8.9, Immature Gran % (Auto) 0.200, Neut % (Auto) 48.7, Lymph % (Auto) 41.6 H, [place] % (Auto) 8.3, Eos % (Auto) 0.8, Baso % (Auto) 0.4, Absolute Neuts (auto) 4.8, Absolute Lymphs (auto) 4.08, Nucleated RBC % 0 02/19/22 03:26: Sodium 138, Potassium 3.8, Chloride 101, Carbon Dioxide 25.0, Anion Gap 12, BUN 25 H, Creatinine 0.96, Estim Creat Clear Calc 45.75, Est GFR (MDRD) Af Amer 74, Est GFR (MDRD) Non-Af 61, BUN/Creatinine Ratio 26.0 H, Glucose 112 H, Calcium 9.1 Radiography Diagnostic Testing: Radiology Impression Echocardiogram 02/18/22 07:09 Interpretation Summary Normal LV size. Moderate concentric left ventricular hypertrophy. Moderately severe global left ventricular systolic dysfunction. The estimated ejection fraction is 25 %. There is moderate to severe global hypokinesis of the left ventricle. Stage 1 diastolic dysfunction. Mean aortic valve gradient 37 mmHg. Severe aortic stenosis. Calculated aortic valve area (continuity equation) is 0.6 cm2. Contrast injection was performed. Ordering Physician: Natanael Hartman Referring Physician: Joe Mac Performed By: Ruthann Gutierrez RDCS D/C Instructions Discharge Diet: No restrictions Weight Bearing Status: Full weight bearing Meaningful Use Info Meaningful Use Diagnoses (Choose all that apply): AMI and CHF AMI/Post PCI/Angioplasty Aspirin given w/in 24hrs of arrival?: Yes ASA at discharge?: Yes Antiplatelet Therapy at Discharge:: No Reason Antiplatelet Therapy not ordered:: not indicated Statins at discharge?: Yes Polo/ARB at discharge?: No Reason Polo/ARB not ordered:: Severe aortic stenosis Beta Luis at discharge?: No Reason Beta Luis not ordered:: Severe aortic stenosis Done w/ Acute UT measure.: Yes Documented LVEF (%): 25 CHF POLO/ARB ordered at discharge?: No Reason POLO/ARB not ordered?: Severe aortic stenosis Documented LVEF (%): 25 Discharge Plan Admission Admit Date/Time: 02/18/22 05:48 Primary Reason for Your Visit: Non Stemi, Congestive heart failure Attending Provider: Jose Elias Garcia Primary Care Provider: Cuauhtemoc Smith Consulting Providers: Natanael Hartman ; Abrahan Fowler ; Emre Quezada ; Nargis Mota Discharge Orders/Prescriptions Prescriptions: New furosemide 40 mg Tablet 40 mg PO BIDLX Qty: 60 0RF atorvastatin 40 mg Tablet 40 mg PO QHS Qty: 30 0RF potassium chloride [Klor-Con M20] 20 mEq Tablet,Er Particles/Crystals 20 meq PO BIDCM Qty: 60 0RF Continued ascorbate calcium (vitamin C) 500 mg Capsule 100 mg PO DAILY cholecalciferol (vitamin D3) [Vitamin D3] 125 mcg (5,000 unit) Tablet 125 mcg PO DAILY melatonin 10 mg Tablet 10 mg PO QHS aspirin 81 mg Tablet 81 mg PO DAILY Discontinued vitamin E 400 unit Tablet 400 mg PO DAILY potassium 99 mg Tablet 99 mg PO DAILY Referrals / Follow Up: Aryan Lawrence MD [Med Staff - Active Staff] - Within 2 Weeks (call office to schedule appointment) Cuauhtemoc Smith DO [Primary Care Provider] - See Referral Note (within 2-3 weeks) Disposition Disposition (needs filled in before D/C Order can be placed): Home, Self Care Charges/Coding Visit Charges Inpatient E&M: 55284 Disch Hosp
== END 2022-02-19 16:15 | disposition home or self-care (01) | DRG 280 ==
LOC: ED 05:50 → ICU 06:01 → PCU 02-19 14:17 → ICU 02-20 17:18 → PCU 02-20 17:20
PROVIDERS: Admitting Provider Hospitalist; Emergency Provider Emergency Medicine; PCP Student in an Organized Health Care Education/Training Program; Visit Provider Internal Medicine
DX: I11.0 Hypertensive heart disease with heart failure (principal); I21.A1 Myocardial infarction type 2; J96.01 Acute respiratory failure with hypoxia; I50.21 Acute systolic (congestive) heart failure; I16.1 Hypertensive emergency; I42.8 Other cardiomyopathies; E78.5 Hyperlipidemia, unspecified; I25.10 Atherosclerotic heart disease of native coronary artery without angina pectoris; I35.0 Nonrheumatic aortic (valve) stenosis; D72.829 Elevated white blood cell count, unspecified; R01.1 Cardiac murmur, unspecified; E66.9 Obesity, unspecified; Z68.32 Body mass index [BMI] 32.0-32.9, adult; Z79.01 Long term (current) use of anticoagulants; Z79.82 Long term (current) use of aspirin; Z79.899 Other long term (current) drug therapy
CPT/HCPCS: 71045; 71275; 80048; 83735; 83880; 84484; 85025; 93005; 93306; 93458; 94002; 99152; 99153; 99251; 99284; J7030; Q9957; Q9967; A4216; C1769; C1894; C8929; G0463; J1940

== ENCOUNTER → 2022-05-22 | Outpatient (CLI) | payer MEDICARE, SELFPAY ==
--- NOTE | 2022-05-22 09:31 | CR.HP_ITS ---
CR - History & Physical - General Arrival date:: 05/22/22 Arrival time:: 09:36 Date of Referral:: 05/11/22 Date of CR Evaluation:: 05/22/22 Referring Physician: Dr. Aryan Lawrence Primary Diagnosis: Aortic Valve Replacement - History of Present Cardiac Event Onset Date: Enter Onset Date of cardiac illnesses in Comment field below Heart valve replacement or repair:: Yes - TAVR March 2022 @ [facility] Type of Symptoms:: Flash pulmonary edema, NSTEMI, Respiratory failure with hypoxia Interventions with present event:: Trans catheterization aortic valve replacement (TAVR) Were there any complications?: no - Sleep Disorder Evaluation Hx of Sleep Apnea: No Do you snore loudly (louder than talking or can be heard through closed doors)?: No Do you often feel tired/ fatigued/ sleepy during daytime?: No Has anyone observed you stop breathing during sleep?: No History of Hypertension (for STOP score): Yes STOP Results: Negative - Medications Home Medications: Ambulatory Orders Medication Instructions Recorded aspirin 81 mg tablet 81 mg PO DAILY antiplatelet 02/18/22 melatonin 10 mg tablet 10 mg PO QHS sleep 02/18/22 atorvastatin 40 mg tablet 40 mg PO QHS #90 tabs 03/16/22 ascorbate calcium (vitamin C) 500 1 g PO DAILY 05/02/22 mg capsule cholecalciferol (vitamin D3) 50 50 mcg PO DAILY 05/02/22 mcg (2,000 unit) tablet fluticasone propionate 50 1 spray intranasal BID 05/02/22 mcg/actuation nasal spray,suspension (Allergy Relief (fluticasone)) metoprolol succinate 25 mg 25 mg PO QPM 05/02/22 tablet,extended release 24 hr multivitamin 1 tab PO DAILY 05/02/22 loratadine 10 mg tablet 10 mg PO DAILY 05/11/22 olmesartan 20 mg tablet 20 mg PO BID #120 tabs 05/11/22 - Allergies Allergies/Adverse Reactions: Allergies Sulfa (Sulfonamide Antibiotics) Allergy (Unknown, Verified 05/11/22 15:16) Hives Advanced Directives - Advanced Directives 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 Living Will: Yes Advance Directives Information Provided: No Advance Directives on File: No DNR Order?:: No - MOLST See MOLST form: No Past Medical History - Covid-19 Screening Fever: No Unexplained muscle aches: No Current respiratory symptoms: No - H/O acute respiratory failure with hypoxia, flash pulmonary edema Upper respiratory infections symptoms: No Gastro-intestinal symptoms: No Vgu-Ormu-[id number] symptoms: No Has tested positive for COVID-19 in last 30 days: No Date of testin05/22/22 - Fully vaccinated with both Booster Had contact w/person w/symptoms or Covid-19 (+) last 14 days: No Has High Risk Exposures ID'd by Health dept/Inf Control team: No 65 years or older:: Yes Lives in Assisted Living facility:: No Has a chronic lung disease or moderate to severe asthma:: No Has a serious heart condition:: No Immunocompromised:: No Severely obese (Body Mass Index of 40 or higher):: No Diabetic:: No Has chronic kidney disease undergoing dialysis:: No Has liver disease:: No - Past Medical Illness Medical History: Past Medical History (Last Reviewed 05/11/22 @ 15:[address] Aryan Lawrence MD) Acute respiratory failure with hypoxia J96.01 Essential hypertension I10 Flash pulmonary edema Onset Date: 02/18/22 J81.0 HFrEF (heart failure with reduced ejection fraction) I50.20 History of non-ST elevation myocardial infarction (NSTEMI) Onset Date: 02/18/22 I25.2 Non-ischemic cardiomyopathy I42.8 Nonobstructive atherosclerosis of coronary artery I25.10 Nonrheumatic aortic (valve) stenosis I35.0 Obesity E66.9 - Past Surgical History Surgical History: Past Surgical History (Last Reviewed 05/11/22 @ 15:[address] Aryan Lawrence MD) H/O: hysterectomy Z90.710 History of left heart catheterization Onset Date: 02/19/22 Z98.890 History of transcatheter aortic valve replacement (TAVR) Onset Date: 04/09/22 Z95.2 23 mm NESSA S3 valve 04/09/2022 Hx of appendectomy Z90.49 Hx of cholecystectomy Z90.49 - Family History Summary Family History: Family History (Last Reviewed 05/11/22 @ 15:[address] Aryan Lawrence MD) Other Heart disease Social History - Smoking History Smoking Status: Never smoker Hx Tobacco Use: No Hx Smoking Exposure: No - Alcohol Use Alcohol Usage: Yes - glass of wine per month - Substance Abuse Hx Substance Use: No - Occupation Occupation (List type of work in comments):: Retired - Hobbies, Recreation, Social Activities Hobbies: Sewing - crafts, grandchildren, Reading, Walking, Other Recreational Activities: I am able to engage in most, but not all activities Social Environment - Status Marital Status: - Current Living Arrangements Living Environment:: Spouse - Children How many children do you have?: 2 Do any of your children live nearby?: Yes - Safety Do you feel safe in your surroundings?: Yes - Assistance Do you need any assistance at home?: no Review of Systems - Review of Systems Hints: Right click = Denies ([place]ash). Left click = Reports ([place]) Review of Present Symptoms: Reports: Appetite - Normal, Appetite - Special Diet - watch what eat, a lot of fruits vegetables, Sleep - Normal. Denies: Shortness of Breath at Rest, Shortness of Breath with Exertion - not since the surgery, Operative Discomfort, Dizziness/Lightheadedness, Fatigue, Heart Arrhythmia/Irregularities, Sexual Changes - Pain Is Patient Pain Free?: Yes Pain Location: none Pain Level: 0/10 Risk Factor Assessment - Chief Complaint Chief Complaint: 71 year old female patient of Dr. Lawrence who presents to cardiac rehab today following recent TAVR procedure. She had presented to [facility] in January 2022 with flash pulmonary edema, hypertensive emergency, and elevated troponin. She underwent cardiac testing which demonstrated mild disease in the LAD and circumflex artery. Her HFrEF was 25%. She was then transfer to [facility] for further care. - Vital Signs Temperature: 98.3 F Respiratory Rate: 16 Pulse Ox: 98 Blood Pressure: 150/76 - Pulse Pulse Rate: 78 Pulse Rhythm: Regular - Hypertension Blood Pressure Sitting - Left Arm: 150/76 - Blood Cholesterol/Lipids Total Cholesterol (mg/dL) Goal = less than 200 mg/dL: 0 - labs unavailable - Obesity Height: 5 ft 3 in Weight:: 180 lb Weight in Pounds: 180.0 lbs Weight Source: Stated by Patient Body Mass Index (BMI): 31.8 Nutritional Referral for Obesity: Yes - Physical Inactivity Physical Inactivity: Reg Exercise 30 min/day - Risk Stratification Risk Guidelines: Lowest Risk: Risk Factor for Smoking, Risk Factor for Dyslipidemia, Risk Factor for Diabetes, Risk Factor for Sedentary Lifestyle, Risk Factor for Depression, Highest Risk: Risk Factor for Obesity - BMI 31.8, Risk Factor for Hypertension - 150/76 - Family History Family History: Family History (Last Reviewed 05/11/22 @ 15:[address] Aryan Lawrence MD) Other Heart disease Motivation - Motivation to Participate On a scale of 1 to 10, how prepared are you to commit to attending program?: 10 What do you see as barriers to successfully being able to complete the program?: no What do you see as the benefits of succesfully completing the program? In other words, what do you hope to get out of participating in the program?: getting strength back, normal activities Are there issues you are dealing with that will interfere with completing the program?: no Do you have a spouse or signficant other, family or friends who will help support you to complete the program?: yes
--- NOTE | 2022-05-22 09:32 | CR.ITP_ITS ---
Diagnosis - General Information Admitting Diagnosis: Aortic Valve Replacement Secondary Diagnosis: HTN, Flash pulmonary edema, HFrEF w/reduced EF, Non-STEMI, ischemic cardiomyopathy Personal Learning Style:: Audio/Visual, Written Barriers to Learning: No Barriers Stage of change r/t lifestyle modifications:: Action Gave educational material for:: Treating Heart Disease, Emotions & Heart Diseas e, Stress Management & Relaxation, Sleep Disorders & Heart Disease, How The Heart Works, What it means to have Heart Disease, How Coronary Artery Disease is Diagnosed, Heart Procedures, What Heart Medications Do, Risk Factors & Modifications, Living an Active Life, Nutrition - Education/Goals Individual Counseling: Initial Assessment: Abnormal Cholesterol Levels, High Blood Pressure - 150/76, Overweight/Obesity - BMI 31.8 Cardiac Rehabilitation Goals: 1. Maintain the individual as the primary focus of care. 2. To improve the patient's quality of life. 3. Identification of cardiac risk factors and provide cardiac risk factor management. 4. Enhance the psychosocial status of the patient. 5. Reconditioning enough to allow the patient to resume customary activities. 6. Control symptoms of cardiac disease Personal Goals: Initial Assessment: Improve energy level, Participate in home exercise program, Get back to work, or to resume activities faster, Improve knowledge of cardiac disease, Improve muscle strength and endurance, Improve diet and eating habits (eat healthier), Control risk factors (learn risk factor modification), Other goal: Scale for measuring improvement of personal goals: Enter appropriate number in Comments. 2 = Unchanged. 3 = Slightly Better. 4 = Moderate Improvement. 5 = Met my Goal - Diagnosis & Disease Process Outcomes/Goals: Pt IDs own risk factors & lifestyle modifications by Session 10, Verbalizes symptoms of angina & response by session 3., Pt independently manages Plan/Interventions: Assist Pt to ID & engage in lifestyle modification to reduce CVD risk, Instruct on individual risk factors, Review symptoms of angina & emergency actions, Review secondary diagnosis & identify educational needs. - Safety Referral to Physical Therapy: No Referral to [facility] Case Management: No Fall Risk Assessed:: Yes Assistive Devices:: None Exercise - Initial Assessment - Visit Date of Eval: 05/22/22 Session #:: 0 - Pre-cardiac rehab evaluation Mets: Pre-: >7 METS for 30 minutes by discharge - Physician Prescribed Exercise Modalities: Treadmill, Airdyne, NuStep Frequency: 3x/week for 12 weeks [36 sessions] Intensity: 60-80% of age predicted maximum heart rate reserve Current METSs:: 3.0 Target Heart Rate:: 98-113 Resting Blood Pressure: 150/76 - Outcomes & Goals Goals:: Verbalizes understanding of THR, RPE & goal METS by session 6, Documents in home exercise log/reports 30 min aerobic 5 day/wk by DC, Demonstrates accurate pulse taking by DC - Intervention & Plan Exercise Program Goals: Instruct on personal THR & RPE, Instruct on MET level & personal MET goal, Show patient to take own pulse /validate performance until accurate, Instruct on home exercise - Physical Activity Home Exercise Physical Activity - Home Exercise: Safe Exercise, Warm-up, Self-monitoring, Cool-Down, Home Exercise > 30 min Daily, Sitting Time <3 hours/daily - Outcomes & Goals Outcomes/Goals: Demonstrates correct Warm-up/exercise Cool-Down (S3) if = 2.5 METs, Verbalizes symptoms of exercise intolerance by Session 3 (S3), Demonstrate safe equipment use (S3) & follows exercise prescrition (6) - Intervention & Plan Plan/Intervention: Instruct warm-up & cool-down if exercising at > 2 METs, Instruct on symptoms of exercise intolerance & actions to take, Instruct & monitor on saf, Assess intial functional capacity & safety risk Nutrition - Initial Assessment - Program Goals Nutrition Program Goals: LDL <100 optimal. 100 - 129 Near optimal. 130 - 159 Borderline High. 160 - 189 High. Total Cholesterol <200 desirable. 200 - 239 Borderline High. >/= 240 High. HDL < 40 Low >/=60 High. Triglycerides <150 desirable. <199 optimal. VlDL 5 - 40. HgbA1C <7%. BMI <25 Patient has diagnosis of Hyperlipidemia (ICD E78)?: Yes - Visit Date of Assessment:: 05/22/22 Session #:: 0 - Pre-cardiac rehab evaluation - Cholesterol/Lipids (Other Core Measures) Triglycerides (mg/dL): 0 - Labs not available Determine presence & major risk factors that modify LDL goal: Hypertension or h ypertensive medication, Family history of premature CHD in Male < 55 years: female <65 yearsFa, Age men > 45 years; women >/= 55 years Outcomes/Goals: Pt IDs own risk factors & lifestyle modifications by Session 10, Verbalizes symptoms of angina & response by session 3., Pt independently manages Intervention/Plan: Instruct on personal lipid levels & lipid goals/NCEP guidelines, Instruct on cholesterol Referral to dietitian:: Yes - Medical Nutrition Therapy - Diabetes (Other Core Measures) Diabetes Type: Not Applicable - Weight Mgt (Other Care) Not Applicable: No Height: 5 ft 3 in Weight:: 180 lb BMI: 31.8 Diagnosis Overweight/Obesity BMI> 30% ICD-10 E66: Yes Diagnosis High BMI/Morbid Obesity BMI> 35% ICD-10 Z68: No Outcomes/Goals: Pt sets, maintains & shows weight loss goal & trend during rehab Intervention/Plan: Instruct on ideal BMI & set weight loss goal w/patient, Assist pt to ID & incorporate diet changes for weight loss by S9, Refer to Structured Weight Loss program as appropriate, Encourage goal of using 250- 300dcal per session for weight loss - Healthy Eating Habits Will attend diet classes:: Yes Outcomes/Goals:: Consume diet rich in vegs,fruits,whole grain/high fiber,fish,lean meat, Limit sat/trans fats,cholesterol & added salts & sugars Intervention/Plan:: Assess current eating habits - Education Gave educational materials for:: Healthy eating Nutrition - 30-Day Assessment Nutrition - 60-Day Assessment Nutrition - 90-Day Assessment Nutrition - Final Assessment Core - Initial Assessment - Visit Date of Eval: 05/22/22 Session #:: 0 - Pre-cardiac rehab evaluation - Medication Compliance Preventative Medication(s):: Aspirin, Statin/lipid, Beta josie H/O mental health issues: depression, anxiety, or addiction?: No Doesn?t believe in the benefits of treatment?: No Believes medications are unnecessary or harmful?: No Has a concern about medication side effects?: No Expresses concern over the cost of medications?: No Outcomes/Goals: Verbalizes medications,desired effect & common side effects @ DC, Pt self-reports following medication regimen, Keeps card in wallet w/medications listed by DC Interventions/plans: Instruct on medication effects & side effects, Review medication list w/patient every two weeks, Instruct importance of taking meds as ordered & assist problem solving - Tobacco Use Tobacco Use: Non-smoker - Hypertension Hypertension Diagnosis:: Hypertension ICD-10 I10 Resting Blood Pressure:: 150/76 [place] [employer] Hypertension Guidelines: [place] [employer] Hypertension Guidelines. Normal BP Less than 120/80. Elevated BP 120/80. Hypertension Stage 1: BP 130-139/80-89. Hypertesnion Stage 2: BP 140 or higher/90 or higher. Hypertension Crisis: BP higher than 180/120 Outcomes/Goals: Able to verbalize/achieve optimal blood pressure <130/80, Incorporates diet changes & exercise for blood pressure control by DC Interventions/plan: Instruct on optimal blood pressure, hypertension & medications, Instruct on effects of sodium, alcohol, stress, exercise &hypertension - Tobacco Cessation Referral Smoking Cessation Referral:: No Individual Education/Counseling:: No Education Schedule Given:: Yes Core - 30-Day Assessment Core - 60-Day Assessment Core - 90 Day Assessment Core - Final Assessment Psychosocial - Initial Assess - VIsit Date of Eval: 05/22/22 Session #:: 0 - Pre-cardiac rehab evaluation Not Applicable: Yes History of previous Mental disease:: No - Psychosocial Test Tool Used:: [employer] Kishan QOL Cardiac, PHQ-9 Questionnaire phq-9 Severity: Severity. 1-4 Minimal Depression. 5-9 Mild Depression. 10-14 Moderate Depression. 15-19 Moderately Sever Depression. 20-27 Severe Depression. Rule: - Referral to Behavioral Health PS - Interventions: Yes Attend Stress Management Classes, No Referral to Behavioral Health if PHQ-9 score >9:, No Referral to [facility], No Referral to Physician if PHQ-9 if score is 5-9: - Outcomes/Goals: See list Psychosocial Outcomes/Goals:: ID's personal stressors & 2 strategies to manage stress by discharge - Intervention/Plan: See List Interventions/Plan:: Assess stressors,coping strategies & signs of derpression on admission, Instruct/assist pt to develop coping & personal stress Mgt strategies, Instruct patient to recognize signs & symptoms of depression, Instruct patient to recog Psychosocial - 30-Day Assess Psychosocial - 60-Day Assess Psychosocial - 90-Day Assess Psychosocial - Final Assessmen Patient Health Questionnaire Initial Assessment 1. Little interest or pleasure in doing things: More than half the days 2. Feeling down, depressed, or hopeless: Not at all 3. Trouble falling or staying asleep, or sleeping too much: Several days 4. Feeling tired or having little energy: Several days 5. Poor appetite or overeating: Not at all 6. Feeling bad about yourself -- or that you are a failure or have let yourself or your family down: Not at all 7. Trouble concentrating on things, such as reading the newspaper or watching television: Not at all 8. Moving or speaking so slowly that other people could have noticed. Or the opposite - being so fidgety or restless that you have been moving around a lot more than usual: Not at all 9. Thoughts that you would be better off , or of hurting yourself in some way: Not at all How difficult have these problems made it for you to do your work, take care of things at home, or get along with other people?: Somewhat difficult Total Score: 4 CATHERINE-Q SV Test - Statements CAD is a disease of the arteries in the heart: False Examples of risk factors for heart disease: True Angina is chest pain or discomfort: I Don't Know The benefits of resistance training include: True Eating more meat and dairy products: False Anti-platelet medications such as aspirin are important: I Don't Know The only effective way to manage stress: True An exercise warm-up slowly increases heart rate: True Prepared, processed foods usually have high sodium: True Depression is common after a heart attack: I Don't Know The statin medications lower cholesterol: True To control blood pressure, lower the amount of sodium: True If someone gets chest discomfort during walking: False Transfats are partially hydrogenated vegetable oils: False Sleep apnea that is not treated increases the risk: I Don't Know To control cholesterol, one should become a vegetarian: False Someone knows if he/she is exercising at the right level: True Diabetes cannot be prevented with exercise & health eating: True Stress is a large risk for heart attack: True A diet that can help lower blood pressure is rich in: True - Total Score Total Correct Responses: 13 Self-Efficacy Initial Assessment We would like to know how confident you are in doing certain activities. Please select your confidence level for:: Select your confidence level for the following using the scale 1-10 where 1 is not at all confident and 10 is totally confident. Your score is the average of all 6 responses. Fatigue: How confident are you that you can keep the fatigue caused by your disease from interfering with the things you want to do? Select Number: 10 Physical Discomfort or Pain: How confident are you that you can keep the physical discomfort or pain of your disease from interfering with the things you want to do? Select Number: 10 Emotional Distress: How confident are you that you can keep the emotional distress caused by your disease from interfering with the things you want to do? Select Number: 10 Other Symptoms or Health Problems: How confident are you that you can keep other symptoms or health problems from interfering with the things you want to do? Select Number: 10 Different Tasks and Activities: How confident are you that you can do the different tasks and activities needed to manage your health condition so as to reduce your need to see a doctor? Select Number: 10 Medication: How confident are you that you can do things other than just taking medication to reduce how much your illness affects your everyday life? Select Number: 10 Total Score:: 10 Nutrition Survey - Nutrition Survey Initial Have you lost >10 lbs over the past 2 months without trying?: No Are you following a special diet at home for diabetes, low fat, or low salt?: Yes Are you interested in meeting with a dietitian for help understanding your diet?: No Do you eat less than 3 meals a day?: No Do you eat fatty meats (gooden, sausage, ribs, etc), fried foods, desserts, large amounts of salad dressings, margarine, butter, or cheese most days?: No Do you have food allergies? [Enter types in comment field]: No Do you eat in restaurants more than 3 times a week?: No Do you season food with salt, seasoning salt, or garlic salt?: Yes Do you used canned, boxed, frozen meals, or soups, seasoning packets?: No Total Score:: 2
[2022-05-22 10:11] VITALS: BP 150/76; PULSE 78; RESP 16; TEMP 36.8; O2SAT 98; BMI 31.8
[2022-05-22 10:55] VITALS: BP 150/76; BMI 31.8
== END | disposition home or self-care (01) ==
LOC: CR 09:24
PROVIDERS: PCP Student in an Organized Health Care Education/Training Program; Referring Provider Internal Medicine Cardiovascular Disease; Visit Provider Internal Medicine Cardiovascular Disease
DX: Z95.4 Presence of other heart-valve replacement (principal); I50.20 Unspecified systolic (congestive) heart failure; I42.8 Other cardiomyopathies; J96.01 Acute respiratory failure with hypoxia; J81.0 Acute pulmonary edema; I10 Essential (primary) hypertension; I25.2 Old myocardial infarction; I25.10 Atherosclerotic heart disease of native coronary artery without angina pectoris; I35.0 Nonrheumatic aortic (valve) stenosis

== ENCOUNTER 2022-05-28 14:30 | Outpatient (RCR) | payer MEDICARE, SELFPAY ==
[2022-05-22 09:56] VITALS: BMI 31.8
== END 2022-05-29 23:59 ==
LOC: CR 14:30
PROVIDERS: PCP Student in an Organized Health Care Education/Training Program; Referring Provider Internal Medicine Cardiovascular Disease; Visit Provider Internal Medicine Cardiovascular Disease
DX: Z95.2 Presence of prosthetic heart valve (principal)
CPT/HCPCS: 93798

== ENCOUNTER 2022-06-25 14:30 | Outpatient (RCR) | payer MEDICARE, SELFPAY ==
[2022-05-22 10:55] VITALS: BMI 31.8
--- NOTE | 2022-06-22 12:55 | CR.ITP_ITS ---
Diagnosis Exercise - 30-day Assessment - Visit Date of Eval: 06/22/22 Session #:: 13 - Physician Prescribed Exercise Modalities: Treadmill, Airdyne, NuStep Frequency: 3x/week for 12 weeks [36 sessions] Intensity: 60-80% of age predicted maximum heart rate reserve Duration: 30 - 45 minutes Current METSs:: 4.5 Target Heart Rate:: 98-113 Current RPE:: 11-12 Maximum Excercise HR:: 113 Resting Blood Pressure: 162/82 Maximum Exercise Blood Pressure: 172/80 EKG Type: NSR to ST rare PVC PACs trigeminy and bigeminy Current Physical Activity or Exercising minutes: 38 - Outcomes & Goals Goals:: Verbalizes understanding of THR, RPE & goal METS by session 6, Documents in home exercise log/reports 30 min aerobic 5 day/wk by DC, Demonstrates accurate pulse taking by DC - Intervention & Plan Exercise Program Goals: Instruct on personal THR & RPE, Instruct on MET level & personal MET goal, Show patient to take own pulse /validate performance until accurate, Instruct on home exercise - 30-day Reassessments 30 day Reassessments:: Met - Physical Activity Home Exercise Physical Activity - Home Exercise: Safe Exercise, Warm-up, Self-monitoring, Cool-Down, Home Exercise > 30 min Daily, Sitting Time <3 hours/daily - Outcomes & Goals Outcomes/Goals: Demonstrates correct Warm-up/exercise Cool-Down (S3) if = 2.5 METs, Verbalizes symptoms of exercise intolerance by Session 3 (S3), Demonstrate safe equipment use (S3) & follows exercise prescrition (6) - Intervention & Plan Plan/Intervention: Instruct warm-up & cool-down if exercising at > 2 METs, Instruct on symptoms of exercise intolerance & actions to take, Instruct & monitor on saf, Assess intial functional capacity & safety risk - 30-day Reassessments 30 day Reassessments:: Met Nutrition - Initial Assessment Nutrition - 30-Day Assessment - Program Goals Nutrition Program Goals: LDL <100 optimal. 100 - 129 Near optimal. 130 - 159 Borderline High. 160 - 189 High. Total Cholesterol <200 desirable. 200 - 239 Borderline High. >/= 240 High. HDL < 40 Low >/=60 High. Triglycerides <150 desirable. <199 optimal. VlDL 5 - 40. HgbA1C <7%. BMI <25 Patient has diagnosis of Hyperlipidemia (ICD E78)?: Yes - Visit Date of Assessment:: 06/22/22 Session #:: 13 - Cholesterol/Lipids (Other Core Measures) Determine presence & major risk factors that modify LDL goal: Hypertension or hypertensive medication, Age men > 45 years; women >/= 55 years Outcomes/Goals: Pt IDs own risk factors & lifestyle modifications by Session 10, Verbalizes symptoms of angina & response by session 3., Pt independently manages Intervention/Plan: Instruct on personal lipid levels & lipid goals/NCEP guidelines, Instruct on cholesterol Referral to dietitian:: Yes - Medical Nutrition Therapy 30-day Reassessments:: Progressing - Diabetes (Other Core Measures) Diabetes Type: Not Applicable - Weight Mgt (Other Care) Not Applicable: No Height: 5 ft 3 in - Weight:: 181 lb 8 oz BMI: 32.1 Diagnosis Overweight/Obesity BMI> 30% ICD-10 E66: No Diagnosis High BMI/Morbid Obesity BMI> 35% ICD-10 Z68: Yes Outcomes/Goals: Pt sets, maintains & shows weight loss goal & trend during rehab Intervention/Plan: Instruct on ideal BMI & set weight loss goal w/patient, Assist pt to ID & incorporate diet changes for weight loss by S9, Refer to Structured Weight Loss program as appropriate, Encourage goal of using 250- 300dcal per session for weight loss 30 day Reassessments:: Progressing - lost 4 pounds - Healthy Eating Habits Will attend diet classes:: Yes Outcomes/Goals:: Consume diet rich in vegs,fruits,whole grain/high fiber,fish,lean meat, Limit sat/trans fats,cholesterol & added salts & sugars Intervention/Plan:: Assess current eating habits 30-day Reassessments:: Progressing - Education Gave educational materials for:: Healthy eating Nutrition - 60-Day Assessment Nutrition - 90-Day Assessment Nutrition - Final Assessment Core - Initial Assessment Core - 30-Day Assessment - Visit Date of Eval: 06/22/22 Session #:: 13 - Medication Compliance Preventative Medication(s):: Aspirin, Statin/lipid, Beta josie H/O mental health issues: depression, anxiety, or addiction?: No Doesn?t believe in the benefits of treatment?: No Believes medications are unnecessary or harmful?: No Has a concern about medication side effects?: No Expresses concern over the cost of medications?: No Outcomes/Goals: Verbalizes medications,desired effect & common side effects @ DC, Pt self-reports following medication regimen, Keeps card in wallet w/medications listed by DC Interventions/plans: Instruct on medication effects & side effects, Review medication list w/patient every two weeks, Instruct importance of taking meds as ordered & assist problem solving 30-day Reassessments:: Met Reassessment Notes & Comments:: 05/28/2022 Metoprolol succinate increased to 25mg BID per office. - Tobacco Use Tobacco Use: Non-smoker - Hypertension Hypertension Diagnosis:: Hypertension ICD-10 I10 Resting Blood Pressure:: 162/82 [place] [employer] Hypertension Guidelines: [place] [employer] Hypertension Guidelines. Normal BP Less than 120/80. Elevated BP 120/80. Hypertension Stage 1: BP 130-139/80-89. Hypertesnion Stage 2: BP 140 or higher/90 or higher. Hypertension Crisis: BP higher than 180/120 Peak Exercise Blood Pressure:: 172/80 Outcomes/Goals: Able to verbalize/achieve optimal blood pressure <130/80, Incorporates diet changes & exercise for blood pressure control by DC Interventions/plan: Instruct on optimal blood pressure, hypertension & medications, Instruct on effects of sodium, alcohol, stress, exercise &hypertension 30 day Reassessments:: Progressing - Tobacco Cessation Referral Smoking Cessation Referral:: No Individual Education/Counseling:: No Education Schedule Given:: Yes Core - 60-Day Assessment Core - 90 Day Assessment Core - Final Assessment Psychosocial - Initial Assess Psychosocial - 30-Day Assess - VIsit Date of Eval: 06/22/22 Session #:: 13 Not Applicable: Yes History of previous Mental disease:: No - Psychosocial Test Tool Used:: PHQ-9 Questionnaire phq-9 Severity: Severity. 1-4 Minimal Depression. 5-9 Mild Depression. 10-14 Moderate Depression. 15-19 Moderately Sever Depression. 20-27 Severe Depression. Rule: - Referral to Behavioral Health PS - Interventions: Yes Attend Stress Management Classes, No Referral to Behavioral Health if PHQ-9 score >9:, No Referral to [facility], No Referral to Physician if PHQ-9 if score is 5-9: - Outcomes/Goals: See list Psychosocial Outcomes/Goals:: ID's personal stressors & 2 strategies to manage stress by discharge - Intervention/Plan: See List Interventions/Plan:: Assess stressors,coping strategies & signs of derpression on admission, Instruct/assist pt to develop coping & personal stress Mgt strategies, Instruct patient to recognize signs & symptoms of depression, Instruct patient to recog - 30-day Reassessments: 30 day Reassessments:: Progressing Psychosocial - 60-Day Assess Psychosocial - 90-Day Assess Psychosocial - Final Assessmen Patient Health Questionnaire 30-Day Re-eval Assessment 1. Little interest or pleasure in doing things: More than half the days 2. Feeling down, depressed, or hopeless: Not at all 3. Trouble falling or staying asleep, or sleeping too much: Several days 4. Feeling tired or having little energy: Not at all 6. Feeling bad about yourself -- or that you are a failure or have let yourself or your family down: Not at all 7. Trouble concentrating on things, such as reading the newspaper or watching television: Not at all 8. Moving or speaking so slowly that other people could have noticed. Or the opposite - being so fidgety or restless that you have been moving around a lot more than usual: Not at all 9. Thoughts that you would be better off , or of hurting yourself in some way: Not at all How difficult have these problems made it for you to do your work, take care of things at home, or get along with other people?: Not difficult at all Total Score: 3 Self-Efficacy 30-Day Re-eval Assessment We would like to know how confident you are in doing certain activities. Please select your confidence level for:: Select your confidence level for the following using the scale 1-10 where 1 is not at all confident and 10 is totally confident. Your score is the average of all 6 responses. Fatigue: How confident are you that you can keep the fatigue caused by your disease from interfering with the things you want to do? Select Number: 10 Physical Discomfort or Pain: How confident are you that you can keep the physical discomfort or pain of your disease from interfering with the things you want to do? Select Number: 10 Emotional Distress: How confident are you that you can keep the emotional distress caused by your disease from interfering with the things you want to do? Select Number: 10 Other Symptoms or Health Problems: How confident are you that you can keep other symptoms or health problems from interfering with the things you want to do? Select Number: 10 Different Tasks and Activities: How confident are you that you can do the different tasks and activities needed to manage your health condition so as to reduce your need to see a doctor? Select Number: 10 Medication: How confident are you that you can do things other than just taking medication to reduce how much your illness affects your everyday life? Select Number: 10 Total Score:: 10 Nutrition Survey
[2022-06-22 13:05] VITALS: BP 162/82; BP 172/80; BMI 32.1
== END 2022-06-26 23:59 ==
LOC: CR 14:30
PROVIDERS: PCP Student in an Organized Health Care Education/Training Program; Referring Provider Internal Medicine Cardiovascular Disease; Visit Provider Internal Medicine Cardiovascular Disease
DX: Z95.2 Presence of prosthetic heart valve (principal)
CPT/HCPCS: 93798

== ENCOUNTER 2022-07-27 14:30 | Outpatient (RCR) | payer MEDICARE, SELFPAY ==
[2022-06-22 13:05] VITALS: BMI 32.1
[2022-06-27 00:31] VITALS: BP 162/82; BP 172/80
--- NOTE | 2022-07-20 10:30 | CR.ITP_ITS ---
Diagnosis Exercise - 60-day Assessment - Visit Date of Eval: 07/20/22 Session #:: 23 - Physician Prescribed Exercise Modalities: Treadmill, Airdyne, NuStep Frequency: 3x/week for 12 weeks [36 sessions] Intensity: 60-80% of age predicted maximum heart rate reserve Current METSs:: 5.5 Target Heart Rate:: 113-128 Current RPE:: 13-15 Maximum Excercise HR:: 126 Resting Blood Pressure: 156/80 Maximum Exercise Blood Pressure: 180/72 EKG Type: NSR to ST with occas pac, rare pvc - Outcomes & Goals Goals:: Verbalizes understanding of THR, RPE & goal METS by session 6, Documents in home exercise log/reports 30 min aerobic 5 day/wk by DC, Demonstrates accurate pulse taking by DC, Other additional outcome/goals: see below - Intervention & Plan Exercise Program Goals: Instruct on personal THR & RPE, Instruct on MET level & personal MET goal, Show patient to take own pulse /validate performance until accurate, Instruct on home exercise, Other additional plan/int - 30-day Reassessments 30 day Reassessments:: Progressing - THR explained - Physical Activity Home Exercise Physical Activity - Home Exercise: Safe Exercise, Warm-up, Self-monitoring, Cool-Down, Home Exercise > 30 min Daily, Sitting Time <3 hours/daily - Outcomes & Goals Outcomes/Goals: Demonstrates correct Warm-up/exercise Cool-Down (S3) if = 2.5 METs, Verbalizes symptoms of exercise intolerance by Session 3 (S3), Demonstrate safe equipment use (S3) & follows exercise prescrition (6), Other: See below - Intervention & Plan Plan/Intervention: Instruct warm-up & cool-down if exercising at > 2 METs, Ins truct on symptoms of exercise intolerance & actions to take, Instruct & monitor on saf, Assess intial functional capacity & safety risk, Other See below - 30-day Reassessments 30 day Reassessments:: Progressing - workloads increased Nutrition - Initial Assessment Nutrition - 30-Day Assessment Nutrition - 60-Day Assessment - Program Goals Nutrition Program Goals: LDL <100 optimal. 100 - 129 Near optimal. 130 - 159 Borderline High. 160 - 189 High. Total Cholesterol <200 desirable. 200 - 239 Borderline High. >/= 240 High. HDL < 40 Low >/=60 High. Triglycerides <150 desirable. <199 optimal. VlDL 5 - 40. HgbA1C <7%. BMI <25 Patient has diagnosis of Hyperlipidemia (ICD E78)?: Yes - Visit Date of Assessment:: 07/20/22 Session #:: 23 - Cholesterol/Lipids (Other Core Measures) Determine presence & major risk factors that modify LDL goal: Hypertension or hypertensive medication, Low HDL cholesterol <40 mg/dL*, Family history of premature CHD in Male < 55 years: female <65 yearsFa, Age men > 45 years; women >/= 55 years Outcomes/Goals: Pt IDs own risk factors & lifestyle modifications by Session 10, Verbalizes symptoms of angina & response by session 3., Pt independently manages, Other Additional Outcomes/Goals: Intervention/Plan: Advocate for lipid panel cholesterol medication if applicable, Instruct on personal lipid levels & lipid goals/NCEP guidelines, Instruct on cholesterol, Other additional plan/int 30-day Reassessments:: Progressing - risk factors explained - Weight Mgt (Other Care) Height: 5 ft 3 in Weight:: 82.554 kg BMI: 32.2 Diagnosis Overweight/Obesity BMI> 30% ICD-10 E66: Yes Diagnosis High BMI/Morbid Obesity BMI> 35% ICD-10 Z68: No Outcomes/Goals: Pt sets, maintains & shows weight loss goal & trend during rehab, Other additional outcomes/goals Intervention/Plan: Instruct on ideal BMI & set weight loss goal w/patient, Assist pt to ID & incorporate diet changes for weight loss by S9, Refer to Structured Weight Loss program as appropriate, Encourage goal of using 250- 300dcal per session for weight loss, Other additional plan/interventions 30 day Reassessments:: Progressing - will attend nutrition class - Healthy Eating Habits Will attend diet classes:: Yes Outcomes/Goals:: Consume diet rich in vegs,fruits,whole grain/high fiber,fish,lean meat, Limit sat/trans fats,cholesterol & added salts & sugars, Other additional outcome/goals: Intervention/Plan:: Assess current eating habits, Other Additional plan/interventions 30-day Reassessments:: Progressing - will attend nutrition class - Education Gave educational materials for:: Signs & symptoms of hypoglycemia, Signs & symptoms of hyperglycemia, Relate diabetes to coronary artery disease Nutrition - 90-Day Assessment Nutrition - Final Assessment Core - Initial Assessment Core - 30-Day Assessment Core - 60-Day Assessment - Visit Date of Eval: 07/20/22 Session #:: 23 - Medication Compliance Preventative Medication(s):: Aspirin, Statin/lipid, Beta josie H/O mental health issues: depression, anxiety, or addiction?: No Doesn?t believe in the benefits of treatment?: No Believes medications are unnecessary or harmful?: No Has a concern about medication side effects?: No Outcomes/Goals: Verbalizes medications,desired effect & common side effects @ DC, Pt self-reports following medication regimen, Keeps card in wallet w/medications listed by DC, Other additional outcome/goals: Interventions/plans: Instruct on medication effects & side effects, Review medication list w/patient every two weeks, Instruct importance of taking meds as ordered & assist problem solving, Other additional 30-day Reassessments:: Progressing - encouraged to take meds - Tobacco Use Tobacco Use: Non-smoker - Hypertension Hypertension Diagnosis:: Hypertension ICD-10 I10 Resting Blood Pressure:: 156/80 [place] [employer] Hypertension Guidelines: [place] [employer] Hypertension Guidelines. Normal BP Less than 120/80. Elevated BP 120/80. Hypertension Stage 1: BP 130-139/80-89. Hypertesnion Stage 2: BP 140 or higher/90 or higher. Hypertension Crisis: BP higher than 180/120 Peak Exercise Blood Pressure:: 180/72 Outcomes/Goals: Able to verbalize/achieve optimal blood pressure <130/80, Incorporates diet changes & exercise for blood pressure control by DC, Other add itional outcomes/goals Interventions/plan: Instruct on optimal blood pressure, hypertension & medications, Instruct on effects of sodium, alcohol, stress, exercise &hypertension, Other additional plan/interventions 30 day Reassessments:: Progressing - Tobacco Cessation Referral Smoking Cessation Referral:: No Individual Education/Counseling:: No Education Schedule Given:: Yes Core - 90 Day Assessment Core - Final Assessment Psychosocial - Initial Assess Psychosocial - 30-Day Assess Psychosocial - 60-Day Assess - VIsit Date of Eval: 07/20/22 Session #:: 23 History of previous Mental disease:: No Psychosocial - 90-Day Assess Psychosocial - Final Assessmen Patient Health Questionnaire 60-Day Re-eval Assessment 1. Little interest or pleasure in doing things: More than half the days 2. Feeling down, depressed, or hopeless: Not at all 3. Trouble falling or staying asleep, or sleeping too much: Several days 4. Feeling tired or having little energy: Not at all 5. Poor appetite or overeating: Not at all 6. Feeling bad about yourself -- or that you are a failure or have let yourself or your family down: Not at all 7. Trouble concentrating on things, such as reading the newspaper or watching television: Not at all 8. Moving or speaking so slowly that other people could have noticed. Or the opposite - being so fidgety or restless that you have been moving around a lot more than usual: Not at all 9. Thoughts that you would be better off , or of hurting yourself in some way: Not at all How difficult have these problems made it for you to do your work, take care of things at home, or get along with other people?: Not difficult at all Total Score: 3 Self-Efficacy 60-Day Re-eval Assessment We would like to know how confident you are in doing certain activities. Please select your confidence level for:: Select your confidence level for the following using the scale 1-10 where 1 is not at all confident and 10 is totally confident. Your score is the average of all 6 responses. Fatigue: How confident are you that you can keep the fatigue caused by your disease from interfering with the things you want to do? Select Number: 10 Physical Discomfort or Pain: How confident are you that you can keep the physical discomfort or pain of your disease from interfering with the things you want to do? Select Number: 10 Emotional Distress: How confident are you that you can keep the emotional distress caused by your disease from interfering with the things you want to do? Select Number: 10 Other Symptoms or Health Problems: How confident are you that you can keep other symptoms or health problems from interfering with the things you want to do? Select Number: 10 Different Tasks and Activities: How confident are you that you can do the different tasks and activities needed to manage your health condition so as to reduce your need to see a doctor? Select Number: 10 Medication: How confident are you that you can do things other than just taking medication to reduce how much your illness affects your everyday life? Select Number: 10 Total Score:: 10 Nutrition Survey
[2022-07-20 10:41] VITALS: BP 156/80; BP 180/72; BMI 32.2
== END 2022-07-27 23:59 ==
LOC: CR 14:30
PROVIDERS: PCP Student in an Organized Health Care Education/Training Program; Referring Provider Internal Medicine Cardiovascular Disease; Visit Provider Internal Medicine Cardiovascular Disease
DX: Z95.2 Presence of prosthetic heart valve (principal)
CPT/HCPCS: 93798

== ENCOUNTER 2022-08-17 14:30 | Outpatient (RCR) | payer MEDICARE, SELFPAY ==
[2022-07-20 10:41] VITALS: BMI 32.2
[2022-07-28 01:55] VITALS: BP 156/80; BP 180/72
== END 2022-08-26 23:59 ==
LOC: CR 14:30
PROVIDERS: PCP Student in an Organized Health Care Education/Training Program; Referring Provider Internal Medicine Cardiovascular Disease; Visit Provider Internal Medicine Cardiovascular Disease
DX: Z95.2 Presence of prosthetic heart valve (principal)
CPT/HCPCS: 93798

== ENCOUNTER → 2023-07-10 | Outpatient (CLI) | payer MEDICARE, SELFPAY ==
[2022-07-20 10:41] VITALS: BMI 32.2
--- NOTE | 2023-07-10 13:49 | ECHOCS_ITS ---
Reason For Study: AORTIC STENOSIS- TAVR Procedure This was a 2D Doppler, Color Flow transthoracic echocardiogram. Contrast injection was performed. Exam performed in department. Left Ventricle Normal LV size. Left ventricular systolic function is normal. The estimated ejection fraction is 60 %. Stage 1 diastolic dysfunction. No regional wall motion abnormalities noted. Right Ventricle Normal RV size. Normal systolic function. Atria Normal left atrium. Normal right atrium. Mitral Valve Normal mitral valve. Tricuspid Valve Normal tricuspid valve. Mild tricuspid valve insufficiency. Pulmonary artery systolic pressure is 25 mmHg. Aortic Valve Peak aortic valve gradient 23 mmHg. Mean aortic valve gradient 12 mmHg. Mild aortic stenosis. Bioprosthetic aortic valve. Pulmonic Valve The pulmonic valve is not well visualized. Great Vessels Normal aortic root. The pulmonary artery is normal size. Normal inferior vena cava. Pericardium/Pleural No pericardial effusion. Medication 22 gauge I.V. with prn adaptor inserted into left arm. Diluted definity 2.5ml given slow IV push to enhance endocardial definition. MMode/2D Measurements & Calculations LVIDd: 4.0 cm IVSd: 1.3 cm LVOT diam: 2.0 cm RVDd: 3.3 cm LVPWd: 1.2 cm LVOT area: 3.2 cm2 Ao root diam: 3.0 cm LAV(MOD-bp): 48.0 ml LVAd ap4: 27.3 cm2 LAV(MOD-bp) Indexed: 25.9 ml/m2 LVLd ap4: 7.1 cm LAV(MOD-sp2): 47.8 ml EDV(MOD-sp4): 84.6 ml LAV(MOD-sp4): 45.5 ml EDV(sp4-el): 88.3 ml LVAs ap4: 11.1 cm2 LVLs ap4: 5.8 cm ESV(MOD-sp4): 18.3 ml ESV(sp4-el): 18.0 ml EF(MOD-sp4): 78.4 % EF(sp4-el): 79.6 % SV(MOD-sp4): 66.3 ml SV(MOD-sp2): 55.8 ml LVAd ap2: 28.4 cm2 LVLd ap2: 7.4 cm EDV(MOD-sp2): 93.0 ml EDV(sp2-el): 92.1 ml LVAs ap2: 16.4 cm2 LVLs ap2: 6.2 cm ESV(MOD-sp2): 37.2 ml ESV(sp2-el): 36.7 ml EF(MOD-sp2): 60.0 % SV(sp4-el): 70.3 ml LA A4 area: 15.1 cm2 LA dimension(2D): 4.3 cm TAPSE: 2.0 cm RA A4 area: 8.9 cm2 Time Measurements MV dec time: 0.16 sec Doppler Measurements & Calculations MV E max joaquin: 75.7 cm/sec Lat Peak E' Joaquin: 9.5 cm/sec Med Peak E' Joaquin: 8.1 cm/sec MV A max joaquin: 88.7 cm/sec E/E' lat: 8.0 E/E' med: 9.4 MV E/A: 0.85 MV dec slope: 472.7 cm/sec2 Ao V2 max: 236.8 cm/sec LV V1 max: 136.2 cm/sec Ao max P.5 mmHg LV V1 max P.4 mmHg Ao V2 mean: 158.8 cm/sec LV V1 mean P.4 mmHg Ao mean P.6 mmHg LV V1 mean: 101.5 cm/sec Ao V2 VTI: 48.9 cm LV V1 VTI: 30.4 cm AV (velocity ratio): 0.62 MELINDA(I,D): 2.0 cm2 MELINDA(V,D): 1.8 cm2 SV(LVOT): 97.2 ml PA V2 max: 94.9 cm/sec TR max joaquin: 236.6 cm/sec PA max PG (full): 0.84 mmHg TR max P.4 mmHg ECHO/Echo Complete W/ Contrast Interpretation Summary Normal LV size. Left ventricular systolic function is normal. The estimated ejection fraction is 60 %. Stage 1 diastolic dysfunction. Bioprosthetic aortic valve. Mean aortic valve gradient 12 mmHg. Ordering Physician: Estella Esquivel Referring Physician: Estella Esquivel Performed By: Nusrat, Roselia, RDCS
--- OUTSIDE RECORDS SUMMARY | 2023-07-10 21:39 | XMS RPT_ITS | CCD ---
Author Name Unknown Address [address] [place] [address] Organization [facility] Care Team Providers Care Manager Of Radiology Name Role Phone Unavailable Primary Care Provider Unavailalfonso SMITH DO, DR DIAZ Primary Care Physician [phone] Emily Smith Unavailable No, Pcp Primary Care Provider UnavailEmily Braxton Unavailable Emily Smith Unavailable Inc, [facility] Primary Care Provider Unav ailABDOUL Luna Admitting Unavailable ABDOUL JOHNSON Attending Unavailable RAY PANTOJA Attending Unavailable MICHELLE YI Attending Unavailable ABDOUL JOHNSON Attending Unavailable LISHA, ARYAN Referring Unavailable HUMZA CAR Attending Unava ildemetrius INC, [facility] Primary Care Unavailable HUMZA CAR Attending Unava ilable CARLENE WELCH Referring Unavailable FERNANDO MALHOTRA Attending Unavailable FERNANDO MALHOTRA Referring Unavailable FERNANDO MALHOTRA Referring Unavailable FERNANDO MALHTORA Attending Unavailable FERNANDO MALHOTRA Attending Unavailable ABDOUL JOHNSON Referring Unavailable REBEKAH, CARLENE Referring Unavailable INC, [facility] Primary Care Unavailable RAY PANTOJA Attending Unavailable RAY PANTOJA Referring Unavailable CARLENE WELCH Attending Unavailable CHANCE DEL VALLE Attending Un available FEDERICA ELDRIDGE, DR DIAZ Primary Care Unavailable ROMAR , DR DIAZ Attending Unavailable ROMAR , DR DIAZ Primary Care Unavailable ROMAR , DR DIAZ Attending Unavailable ROMAR DO, DR DIAZ Primary Care Unavailable ROMAR DO, DR DIAZ Attending Unavailable ROMAR DO, DR DIAZ Primary Care Unavailable Allergies Allergy Classification Reported Allergen(s) Allergy Type Date of Onset Reaction(s) Facility (8 sources) Sulfonamides (Antibiotic); Translations: [sulfa drugs] Propensity to adverse reactions 9 Hives, Itching (finding) [facility] Medications Current Medications Medication Drug Class(es) Dates Sig (Normalized) Sig (Original) ascorbic acid 500 mg chewable tablet (7 sources) Vitamin C take 2 tablets by mo uth in the morning ascorbic acid (Vitamin C) 500 MG tablet Take 1,000 mg by mouth in the morning. 0 Active Completed/Discontinued Medications Medication Drug Class(es) Dates Sig (Normalized) Sig (Original) acetaminophen 500 mg / HYDROcodone bitartrate 5 mg oral tablet (4 sources) Opioid Agonist Start: 04-06-2011 take 1 tablet by mouth every four hours as needed acetaminophen-hyd rocodone 5-500 mg ORAL tablet Take 1 tablet by mouth every 4 hours as needed. 20 tablet 0 04/06/2011 Active Problems Active Problems Problem Classification Problem Date Documented Da te Episodic/Chronic Acute myocardial infarction (3 sources) Non-ST elevation (NSTEMI) myocardial infarction; Translations: [Myocardial infarction] Chronic Conditions associated with dizziness or vertigo (2 sources) Dizziness 03-12-2022 Episodic Congestive heart failure; nonhypertensive (13 sources) Heart failure; Translations: [Heart failure, unspecified] Onset: 03-15-2022 Chronic Coronary atherosclerosis and other heart disease (1 source) History of non-ST segment elevation myocardial infarction 05-24-2022 Chronic Disorders of lipid metabolism (10 sources) Hyperlipidemia; Translations: [Hyperlipidemia, unspecified] Onset: 03-15-2022 03-08-2022 Chronic Essential hypertension (10 sources) Hypertensive disorder; Translations: [Essential (primary) hypertension] Onset: 03-15-2022 03-08-2022 Chronic Heart valve disorders (13 sources) Aortic stenosis, non-rheumatic ; Translations: [Nonrheumatic aortic (valve) stenosis] Onset: 03-15-2022 Chronic Hypertension with complications and secondary hypertension (1 source) Hypertensive heart failure; Translations: [Hypertensive heart disease with heart failure] Chronic Nutritional deficiencies (8 sources) Vitamin D deficiency; Translations: [Vitamin D deficiency, unspecified] Onset: 03-15-2022 03-08-2022 Chronic Other circulatory disease (1 source) History of cardiomyopathy 05-24-2022 Episodic Other lower respiratory disease (1 source) Cough; Translations: [Cough] Episodic Other lower respiratory disease (1 source) Acute pulmonary edema; Translations: [Acute pulmonary edema] Episodic Other lower respiratory disease (2 sources) Acute cardiac pulmonary edema 03-08-2022 Episodic Other lower respiratory disease (1 source) H/O: respiratory disease 05-24-2022 Episodic Other lower respiratory disease (1 source) Nodule of lung; Translations: [Solitary pulmonary nodule] Episodic Other lower respiratory disease (2 sources) Solitary pulmonary nodule; Translations: [Solitary pulmonary nodule] Onset: 09-11-2022 Episodic Other nervous system disorders (2 sources) Paresthesia of lower extremity 03-12-2022 Episodic [place]-; endo-; and myocarditis; cardiomyopathy (except that caused by tuberculosis or sexually transmitted disease) (9 sources) Cardiomyopathy; Translations: [Cardiomyopathy, unspecified] Onset: 03-15-2022 03-08-2022 Chronic Thyroid disorders (9 sources) Hypothyroidism; Translations: [Hypothyroidism, unspecified] Onset: 03-15-2022 Chronic Unclassified (3 sources) Severe aortic valve stenosis 03-08-2022 Unclassified (1 source) Encounter for immunization safety counseling; Translations: [Encounter for immunization safety counseling] Onset: 09-11-2022 Unclassified (2 sources) Cardiac Valve Problem; Translations: [Cardiac Valve Problem] Onset: 03-20-2022 Past or Other Problems Problem Classification Problem Date Documented Date Episodic/Chronic Biliary tract disease (7 sources) Gallstone; Translations: [Calculus of gallbladder without cholecystitis without obstruction] Onset: 03-13-2011 03-13-2011 Episodic Other ear and sense organ disorders (8 sources) Bilateral tinnitus; Translations: [Tinnitus, bilateral] Onset: 03-15-2022 03-08-2022 Episodic Respiratory failure; insufficiency; arrest (adult) (8 sources) Acute respiratory failure; Translations: [Acute respiratory failure with hypoxia] Onset: 03-15-2022 Episodic Unclassified (1 source) Encounter for immunization safety counseling; Translations: [Encounter for immunization safety counseling] Onset: 09-11-2022 Results Test Name Value Interpretation Reference Range Facil ity Vital Signs Date Time Vital Sign Value Performing Clinician Roosevelt escobedo 10-09-2021 10:30-0400 Diastolic blood pressure 88 mm[Hg] Madisyn Elise PA-C Work Phone: [facility] 10-09-2021 10:30-0400 Heart rate 96 /min Madisyn Bogner PA-C Work Phone: [facility] 10-09-2021 10:30-0400 Systolic blood pressure 165 mm[Hg] Madisyn Bogner PA-C Work Phone: [facility] 10-09-2021 10:19-0400 Body temperature 98.6 [degF] Madisyn Bogner PA-C Work Phone: [facility] 10-09-2021 10:190400 Body weight 82.1 kg Madisyn Bogner PA-C Work Phone: [facility] 10-09-2021 10:190400 Respiratory rate 16 /min Madisyn Bogner PA-C Work Phone: [facility] 10-09-2021 10:190400 SaO2% (BldA) [Mass fraction] 97 % Madisyn Bogner PA-C Work Phone: [facility] Encounters Encounter Date Encounter Type Care Provider Facility Start: 03-06-2023 End: 03-07-[address] EMILY SMITH DO Facility:B Start: 02-21-2023 End: 02-22-[address] EMILY SMITH DO Facility:[facility] Start: 09-11-2022 End: 09-11-2022 ambulatory HUMZA CAR [facility] Start: 09-05-2022 End: 09-06-2022 ambulatory CARLENE REBEKAH [facility] Start: 09-05-2022 End: 09-05-2022 Subsequent hospital visit by physician [facility] Exam Room [address] [facility] [address] Imaging Procedures Date Procedure Procedure Detail Performing Clinician Start: 04-09-2022 Repair of heart valve Fausto SMITH DO Start: 03-20-2013 Mammography Madisyn Bogner PA-C Work Phone: Appendectomy DR EMILY Lambert O Gallbladder structur e (body structure) DR EMILY SMITH DO Hernia repair DR EMILY SMITH DO Hysterectomy DR EMILY SMITH D O Plan of Treatment Date Care Activity Detail Author Start: 05-10-2023 Echocardiography Echocardiogram [facility] Start: 04-10-2023 Creatinine measurement Creatinine Level [facility] Start: 04-10-2023 Potassium measurement Potassium Level [facility] Start: 09-11-2022 End: 09-11-2022 Patient encounter procedure 09/11/2022 Office Visit Pulmonology Humza Car DO [address] [address] [facility] Medical [facility] Start: 09-05-2022 End: 09-05-2022 Patient encounter procedure 09/05/2022 Appointment Radiology [facility] CT Imaging Start: 12-28-2021 [facility] Start: 04-29-2021 ADVANCE DIRECTIVE DISCUSSION ADVANCE DIRECTIVE DISCUSSION [facility] Start: 2017 BONE DENSITY BONE DENSITY [facility] Start: 2017 PNEUMOCOCCAL: 65+ (1 - PCV) PNEUMOCOCCAL: 65+ (1 - PCV) [facility] Start: 03-20-2014 Mammography MAMMOGRAM [facility] Start: 2002 SHINGRIX VACCINE (1 of 2) SHINGRIX VACCINE (1 of 2) [facility] Start: 2002 Zoster Vaccines (1 of 2) Zoster Vaccines (1 of 2) [facility] Start: 1997 COLOGUARD (FIT-DNA) COLOGUARD (FIT-DNA) [facility] Start: 1997 Colonoscopy COLONOSCOPY [facility] Start: 1997 COLORECTAL CANCER SCREENING COLORECTAL CANCER SCREENING [facility] Start: [address] COLONOGRAPHY [facility] Start: 1997 DIABETES SCREEN DIABETES SCREEN [facility] Start: 1997 FECAL OCCULT BLOOD FECAL OCCULT BLOOD [facility] Start: 1997 LIPID SCREEN LIPID SCREEN [facility] Start: 1997 SIGMOIDOSCOPY SIGMOIDOSCOPY [facility] Start: 1992 Screening for malignant neoplasm of breast Mammogram [facility] Start: 1971 DTaP/Tdap/Td Vaccines (1 - Tdap) DTaP/Tdap/Td Vaccines (1 - Tdap) [facility] Start: 1971 Urine microalbumin profile DTAP,TDAP,TD (1 - Tdap) [facility] Start: 1970 Diabetes mellitus screening Diabetes Screening [facility] Start: 1970 HEPATITIS C SCREENING HEPATITIS C SCREENING [facility] Start: 1970 Hepatitis C screening Hepatitis C Screening [facility] Start: 1964 Adult depression screening assessment DEPRESSION SCREENING [facility] Start: 1957 COVID-19 VACCINE (#1) COVID-19 VACCINE (#1) [facility] Start: 1952 Hepatitis B Vaccines (1 of 3 - 3-dose series) Hepatitis B Vaccines (1 of 3 - 3-dose series) [facility] Start: 1952 Lipid panel Lipid Panel [facility] Start: 1952 Screening for malignant neoplasm of colon [facility] Start: 1952 Screening for osteoporosis Bone Density Scan [facility] Start: 1952 Thyroid stimulating hormone measurement TSH Level [facility] End: 09-05-2022 CT Chest WO contrast [facility] Work Phone: Immunizations Immunization Date Immunization Notes Care Provider Mauricio zazueta 02-06-2022 [id number]([facility] [id number] kimberley 1 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 [facility] [place] Payers Date Payer Category Payer Medicare ANTHEM MEDICARE ADVANTAGE RADHAEM MEDIBLUE [id number] 2021-Present [address] [place] [id number] Medicare HMO [id number] 2021 Medicare [id number] 2019 Unknown ANTHEM BLUE CROS S AND BLUE SHIELD ANTHEM MEDIBLUE HMO [id number] 2019-Present [phone] [address] [place] [id number] [facility] [id number] 1950 Unknown [id number] 1950 Unknown [id number] 1950 Unknown [id number] 1950 Unknown [id number] Social History Date Type Detail Facility Start: 03-08-2022 End: 03-20-2022 Tobacco smoking status NHIS Never smoked tobacco [facility] Work Phone: Start: 10-09-2021 Alcohol intake Current drinke r of alcohol (finding) [facility] Start: 12-04-2010 History SDOH Alcohol Comment RARE, Special Occasions [facility] Start: 1950 Sex Assigned At Not on file [facility] Start: 09-29-2021 End: 09-05-2022 Exposure to SARS-CoV-2 (event) Not sure [facility] Work Phone: Sex Assigned At Sex [facility] Start: 03-20-2022 Tobacco use and exposure Smokeless tobacco non-user [facility] Start: 05-10-2022 Alcohol intake Ex-drinker (finding) [facility] Start: 05-10-2022 Alcohol intake [facility] Start: 03-20-2022 Alcohol Comment 1 glass of wine [facility] Medical Equipment Procedure Code Equipment Code Equipment Origin al Text Equipment Identifier Dates Valve Aortic Edw ards Shannon 3 Commander Od23 Mm Delivery System - [id number] Start: 04-09-2022 Clinical Notes 01-03-2021 to 08-10-2022 Telephone Encounter - Kimmie Read RCP - 08/10/2022 3:57 PM EDTTelephone Encounter - Kimmie Read RCP - 08/10/2022 3:57 PM EDTTelephone Encounter - Renetta Miller - 08/08/2022 5:11 PM EDT Note Date & Type Note Facility 08-10-2022 Telephone encounter Note Patient notified of appointment details and agrees to keep appointments as scheduled. [facility] 08-10-2022 Miscellaneous Notes Patient notified of appointment details and agrees to keep appointments as scheduled. Auth good through 09/12/22 Patient received my certified letter and is ready to return for follow-up. Her last physical therapy appointment is 08/17/2022 and she is available for appointment at [place] anytime after that. Patient prefers afternoon appointments. Scheduled CT chest @ [facility] on September 05 at [address] Car for results 09/11/22 (pt lives in [place]). We will send to referral team to please update authorization as it was previously pending in May. Third vm for pt to return my call to schedule follow up imaging. Certified Letter sent. Second voicemail for patient to please return my call to assist with scheduling CT. Left vm for pt to return my call to schedule CT chest. Imaging auth is in place. Ms. Knowles has been undergoing continued CT surveillance of a 1.2 cm right middle lobe lung nodule seen on CTA TAVR planning 03/20/2022. Patient was seen by Dr. Humza Car in the lung nodule clinic on 03/30/2022 and repeat [address] chest was recommended. Patient was scheduled for imaging 06/21/2021, but testing was canceled due to no authorization in place. Per EMR review clinicals have been faxed to [employer] for review. Navigator will continue to monitor and assist with rescheduling as soon as authorization is in place. documented in this encounter [facility] 08-08-2022 Telephone encounter Note Auth good through 09/12/22 [facility] 08-08-2022 Miscellaneous Notes Auth good through 09/12/22 Patient received my certified letter and is ready to return for follow-up. Her last physical therapy appointment is 08/17/2022 and she is available for appointment at [place] anytime after that. Patient prefers afternoon appointments. Scheduled CT chest @ [facility] on September 05 at [address] Car for results 09/11/22 (pt lives in [place]). We will send to referral team to please update authorization as it was previously pending in May. Third vm for pt to return my call to schedule follow up imaging. Certified Letter sent. Second voicemail for patient to please return my call to assist with scheduling CT. Left vm for pt to return my call to schedule CT chest. Imaging auth is in place. Ms. Knowles has been undergoing continued CT surveillance of a 1.2 cm right middle lobe lung nodule seen on CTA TAVR planning 03/20/2022. Patient was seen by Dr. Humza Car in the lung nodule clinic on 03/30/2022 and repeat [address] chest was recommended. Patient was scheduled for imaging 06/21/2021, but testing was canceled due to no authorization in place. Per EMR review clinicals have been faxed to insurance [employer] for review. Navigator will continue to monitor and assist with rescheduling as soon as authorization is in place. documented in this encounter [facility] 08-08-2022 Telephone encounter Note Patient received my certified letter and is ready to return for follow-up. Her last physical therapy appointment is 08/17/2022 and she is available for appointment at [place] anytime after that. Patient prefers afternoon appointments. Scheduled CT chest @ [facility] on September 05 at [address] Car for results 09/11/22 (pt lives in [place]). We will send to referral team to please update authorization as it was previously pending in May. [facility] 07-27-2022 Telephone encounter Note Third vm for pt to return my call to schedule follow up imaging. Certified Letter sent. [facility] 07-27-2022 Miscellaneous Notes Third vm for pt to return my call to schedule follow up imaging. Certified Letter sent. Second voicemail for patient to please return my call to assist with scheduling CT. Left vm for pt to return my call to schedule CT chest. Imaging auth is in place. Ms. Knowles has been undergoing continued CT surveillance of a 1.2 cm right middle lobe lung nodule seen on CTA TAVR planning 03/20/2022. Patient was seen by Dr. Humza Car in the lung nodule clinic on 03/30/2022 and repeat [address] chest was recommended. Patient was scheduled for imaging 06/21/2021, but testing was canceled due to no authorization in place. Per EMR review clinicals have been faxed to insurance company for review. Navigator will continue to monitor and assist with rescheduling as soon as authorization is in place. documented in this encounter [facility] [employer] 06-29-2022 Telephone encounter Note Second voicemail for patient to please return my call to assist with scheduling CT. [facility] [employer] 06-27-2022 Telephone encounter Note Left vm for pt to return my call to schedule CT chest. Imaging auth is in place. [facility] [employer] 06-25-2022 Telephone encounter Note Ms. Knowles has been undergoing continued CT surveillance of a 1.2 cm right middle lobe lung nodule seen on CTA TAVR planning 03/20/2022. Patient was seen by Dr. Humza Car in the lung nodule clinic on 03/30/2022 and repeat [address] chest was recommended. Patient was scheduled for imaging 06/21/2021, but testing was canceled due to no authorization in place. Per EMR review clinicals have been faxed to insurance company for review. Navigator will continue to monitor and assist with rescheduling as soon as authorization is in place. [employer] 05-07-2022 Note . MICRO - Microbiology PROCEDURE: Urine Culture [*1] SOURCE: Urine, Clean Catch BODY SITE: COLLECTED DATE/TIME: 05/04/2022 16:49 EST RECEIVED DATE/TIME: 05/05/2022 14:47 EST START DATE/TIME: 05/05/2022 14:47 EST FREE TEXT SOURCE: FINAL REPORTS Final Report [] Verified Date/Time/Personnel: 05/07/2022 07:51 EST 10,000 - 50,000 cfu/ml Mixed growth consistent with normal urogenital michel. PRELIMINARY REPORTS Preliminary Report [] Verified Date/Time/Personnel: 05/06/2022 12:18 EST No growth to date Performing Locations *1: This test was performed at: [address], [facility] , [facility] ([place]) 05-05-2022 Note . MICRO - Microbiology PROCEDURE: Affirm Pathogens DNA Direct Probe [*1] SOURCE: Vaginal Fluid BODY SITE: Vagina COLLECTED DATE/TIME: 05/04/2022 17:52 EST RECEIVED DATE/TIME: 05/05/2022 14:47 EST START DATE/TIME: 05/05/2022 14:47 EST FREE TEXT SOURCE: FINAL REPORTS Final Report [] Verified Date/Time/Personnel: 05/05/2022 17:03 EST Ragini species DNA Probe Negative Gardnerella vaginalis DNA Probe Negative Trichomonas vaginalis DNA Probe Negative Performing Locations *1: This test was performed at: [facility], [address] [place] [address], [id number] , [facility] ([place]) 04-10-2022 Note Name: Hanna hernandez Date of : 1950 Date of Admission: 04/09/2022 Date of Discharge: 04/10/2022 Admitting physician: Abdoul Johnson MD Discharge Attending: NADIA Herron CNP Primary Care Physician: Pcp No Reason for Admission: Severe Symptomatic Aortic Stenosis Consultants: [facility] ADMISSION PROBLEM LIST: Patient Active Problem List Diagnosis Acute congestive heart failure (CMS/HCC) (HCC) Acute pulmonary edema with heart disease (HCC) Acute respiratory failure with hypoxemia (HCC) Calculus of gallbladder Hyperlipidemia Hypertension Hypothyroidism Cardiomyopathy (HCC) Severe aortic valve stenosis Tinnitus of both ears Vitamin D deficiency Severe aortic stenosis Review of Systems Review of Systems Constitutional: Negative for chills and fever. Eyes: Negative for visual disturbance. Respiratory: Negative for cough and shortness of breath (improved). Cardiovascular: Negative for chest pain, palpitations and leg swelling. Gastrointestinal: Negative for abdominal pain, blood in stool and vomiting. Genitourinary: Negative for hematuria. Neurological: Negative for dizziness and syncope. Psychiatric/Behavioral: Negative for confusion. Physical Exam Physical Exam Constitutional: Appearance: Normal appearance. HENT: Head: Normocephalic. Eyes: General: No scleral icterus. Right eye: No discharge. Left eye: No discharge. Cardiovascular: Rate and Rhythm: Normal rate and regular rhythm. Pulses: Normal pulses. Radial pulses are 2+ on the right side. Dorsalis pedis pulses are 2+ on the right side and 2+ on the left side. Posterior tibial pulses are 2+ on the right side and 2+ on the left side. Heart sounds: Normal heart sounds. No murmur heard. Comments: R radial cath site without hematoma, ecchymosis or oozing. R hand with brisk capillary refill R femoral cath site without hematoma, ecchymosis, oozing or bruit Pulmonary: Effort: Pulmonary effort is normal. Breath sounds: Normal breath sounds. Abdominal: General: Abdomen is flat. Palpations: Abdomen is soft. Musculoskeletal: General: Normal range of motion. Cervical back: Normal range of motion. Right lower leg: No edema. Left lower leg: No edema. Skin: General: Skin is warm and dry. Capillary Refill: Capillary refill takes less than 2 seconds. Neurological: Mental Status: She is alert and oriented to person, place, and time. Psychiatric: Mood and Affect: Mood normal. Procedures: Transfemoral transcatheter AVR with 23 mm Shannon S3 valve under moderate sedation Transthoracic echocardiogram HOSPITAL COURSE : The patient was admitted to the hospital for elective TAVR on 04/09/22 . A 23 Shannon S3 valve was implanted. The patient returned to [facility] for recovery. Vital signs and labs were stable. There were no groin complications. The patient was ambulatory the evening of the procedure. Post procedure echocardiogram demonstrated : Aortic Valve: A 23 mm Shannon S3 valve AV Mean Gradient 7 mmHg AV Peak Gradient 12 mmHg AV Peak Velocity 1.7 m/s AV Velocity Ratio 0.47 AV VTI 37.2 cm LVOT:AV VTI Index 0.45 AV Mean Velocity 1.3 m/s Left Ventricle: Left ventricle size is normal. Mildly reduced left ventricular systolic function. Image quality: technically difficult. Additional technique includes myocardial strain. Echo performed in conjunction with TAVR procedureTechnical qualifiers: Technically difficult study and procedure performed with the patient in a supine position. No contrast was given. Evidence of prominent epicardial fat. No pericardial effusion Aortic Valve: A 23 mm Shannon S3 valve No paravalvular regurgitation. Complete echo to follow. Patient education including SBE prophylaxis, activity, access site care, follow up appointments, and medications was provided. The patient verbalized understanding, questions were answered. The patient was discharged home in good condition. Referral to cardiac rehabilitation has been recommended and discussed with the patient prior to discharge. Referral has been made to the [facility] Outpatient Cardiac Rehabilitation Program. Last Labs: Lab Results Component Value Date WBC 8.3 04/10/2022 HGB 12.6 04/10/2022 HCT 36.6 04/10/2022 MCV 92.3 04/10/2022 PLT 271 04/10/2022 Lab Results Component Value Date NA 135 04/10/2022 K 4.3 04/10/2022 CL 109 (H) 04/10/2022 CO2 19 (L) 04/10/2022 BUN 21 (H) 04/10/2022 CREATININE 0.68 04/10/2022 GLUCOSE 97 04/10/2022 CALCIUM 8.8 04/10/2022 No results found for: CHLPL, CHOL No results found for: TRIG No results found for: HDL No results found for: LDLCALC Discharge Medications: Your medication list START taking these medications Instructions Last Dose Given Next Dose Due metoprolol succinate XL 25 MG 24 hr tablet Commonly known as: Toprol-XL Notes to patient: Next dose due at bedtime tonight (more content not included)... [facility] 04-09-2022 Note Patient: Hanna tinsley Procedure Summary Date: 04/09/22 Room / Location: [facility] [place] Room Anesthesia Start: 1220 Anesthesia Stop: 135 Procedures: TAVR/TTE TRANSCATHETER AORTIC VALVE REPLACEMENT (TAVR) - OR (Chest) Diagnosis: Severe aortic stenosis (Severe aortic stenosis [I35.0]) Surgeons: Abdoul Johnson MD; Michelle Yi MD Responsible Provider: NADIA Smallwood Jr., CRNA Anesthesia Type: TIVA ASA Status: 4 Anesthesia Type: TIVA Vitals Value Taken Time BP 103/48 04/09/22 1400 Temp 36.5 04/09/22 1416 Pulse 85 04/09/22 1415 Resp 18 04/09/22 1416 SpO2 91 % 04/09/22 1415 Vitals shown include unvalidated device data. Anesthesia Post Evaluation Patient location during evaluation: ICU Patient participation: complete - patient participated Level of consciousness: awake and alert Pain management: satisfactory to patient Airway patency: patent Dental Injury: no Cardiovascular status: acceptable, blood pressure returned to baseline and hemodynamically stable Respiratory status: acceptable and spontaneous ventilation Hydration status: euvolemic Nausea/Vomiting: controlled No notable events documented. Patient can be discharged once all PACU criteria has been met. [facility] 04-09-2022 Note Patient: Hanna tnisley Procedure Summary Date: 04/09/22 Room / Location: [facility] Operating Room Anesthesia Start: 1220 Anesthesia Stop: 1357 Procedures: TAVR/TTE TRANSCATHETER AORTIC VALVE REPLACEMENT (TAVR) - OR (Chest) Diagnosis: Severe aortic stenosis (Severe aortic stenosis [I35.0]) Surgeons: Abdoul Johnson MD; Michelle Yi MD Responsible Provider: Remy Carriero Jr., CLEATER - OFFICE TECHNOLOGY INSTRUCTOR Anesthesia Type: TIVA ASA Status: 4 Anesthesia Type: TIVA Vitals Value Taken Time BP 103/48 04/09/22 1400 Temp 36.5 04/09/22 1415 Pulse 80 04/09/22 1414 Resp 18 04/09/22 1415 SpO2 91 % 04/09/22 1414 Vitals shown include unvalidated device data. Anesthesia Post Evaluation Patient location during evaluation: ICU Patient participation: complete - patient participated Level of consciousness: awake and alert Pain management: satisfactory to patient Multimodal analgesia pain management approach Airway patency: patent Two or more strategies used to mitigate risk of obstructive sleep apnea Cardiovascular status: acceptable and hemodynamically stable Respiratory status: acceptable Hydration status: acceptable No notable events documented. MIPS #[id number] PONV Patient did not receive an inhalational anesthetic ([id number] MIPS # [phone] Perioperative Temperature Management Anesthesia time was 60 minutes or longer (4255F) Anesthesai administered was General (inhalational or TIVA) or Neuraxial block At least one body temperature greater than 95.8F/35.5C achieved within the 30 mins immediately prior to or the 15 minutes immediately following anesthesia end time MIPS #[phone] Multimodal Pain Management Not emergent case Patient was not administered multimodal pain management Patient reports no pain in PACU MIPS #404 Anesthesiology Smoking Abstinence MIPS 404 I completed my handoff to the receiving clinician during which we: 1. Identified the patient 2. Identified the responsible provider 3. Reviewed the pertinent medical history 4. Discussed the surgical course 5. Reviewed intra-op anesthesia management and issues during anesthesia 6. Set expectations for post-procedure period 7. Allowed opportunity for questions and acknowledgement of understanding. [facility] 04-09-2022 Note Operative Note Procedure: Transcatheter aortic valve replacement (TAVR), transfemoral approach. Preoperative Diagnosis: Severe, symptomatic aortic valvular stenosis. Postoperative Diagnosis: Severe, symptomatic aortic valvular stenosis. Anesthesia: Conscious sedation with local. Cardiothoracic Surgeon: Michelle Yi MD Interventional Cardiologists: Abdoul Johnson M.D. Complications: None. Indications for Procedure: The patient is a 71-year-old female with severe, symptomatic aortic valvular stenosis who was reviewed in the valve clinic and the valve conference and deemed a candidate for TAVR. Description of Procedure: The patient was positioned on the hybrid operating room table in the supine position and conscious sedation anesthesia was initiated. The patient was prepped and draped in usual sterile fashion. The open heart surgery team was available in the operating room. Vascular access was gained to the right femoral artery, right radial artery, and right femoral vein. A 6-Haitian sheath was placed in the right femoral vein through which a temporary pacing wire was advanced to the RV apex where appropriate capture was documented. Sterile tubing was attached to the side port of this sheath and passed off to the anesthesiologist for central IV access. A 6-Haitian sheath was placed in the right radial artery through which a 5-Haitian pigtail catheter was advanced in the aortic annulus for confirmation of the implant angle. A 6-Haitian sheath wasplaced in the right femoral artery. The patient was systemically heparinized with 100 units/kg intravenous heparin. Two Perclose devices were placed at this site. Using the seldinger technique, a 14-Haitian Shannon E-sheath was introduced over the wire into the descending aorta. A 23 mm Shannon S3 valve was advanced through the sheath into the descending thoracic aorta. The valve, mounted on the balloon and the delivery catheter was flexed and advanced around the aortic arch and across the aortic annulus. The valve was deployed under rapid pacing. The valve was noted to seat well and function normally on fluoroscopy and transthoracic echocardiography. The pacing wire and sheaths were removed and perclose stitches synched down. Protamine was given to reverse the systemic effects of heparin. Hemostasis was achieved after pressure held. The patient wastransferred stable to the recovery room. Michelle Yi MD Cardiothoracic Surgery [facility] 04-05-2022 Note Attestation signed by Abdoul Johnson MD at 04/16/2022 4:30 PM I, Dr. Johnson, saw and evaluated the patient. I personally obtained the savage and critical portions of the history and physical exam. I reviewed the chart and discussed the patient with the Nurse Practitioner. I agree with the Nurse Practitioner's medical decision making. I spoke with Hanna Knowles this morning. she tells me that nothing has changed clinically since our last office visit. We will proceed with the planned procedure. Abdoul Johnson MD Cardiology Severe aortic valve stenosis Dx Cardiac Valve Problem ; Referred by Aryan Lawrence Reason for Visit Progress Notes Abdoul Johnson MD (Physician) Cardiology Expand All Collapse All [facility] [address] [facility] [id number] Dept: [phone] Dept Loc: [phone] Visit type: New : 1950 Reason for Visit: Cardiac Valve Problem (Heart Valve Clinic) Assessment and Plan 1. Severe aortic valve stenosis - ECG 12 lead - CLINIC PERFORMED This is a very pleasant 71-year-old female with severe and symptomatic aortic stenosis as well as depressed LV systolic function likely from her aortic stenosis. She is in need of aortic valve replacement. Due to her due to her age and depressed LV function it was felt more favorable to proceed with a percutaneous approach. She will undergo a CT scan for anatomic planning and as long as anatomy is favorable for transcatheter aortic valve replacement we will proceed with that route. The pros, cons, risks, benefits, and alternatives of the TAVR procedure were discussed with the patient and her family. This includes the risk of , heart attack, stroke, need for conversion to open procedure, need for permanent pacemaker, kidney injury, vascular injury, and other complications. Their questions were answered, and they wished to proceed with the procedure. It was a pleasure seeing your patient in the office today. Please do not hesitate to call me with any questions. Follow up in about 3 months (around 06/20/2022). Subjective HPI Hanna Rowellensis a very pleasant 71-year-old female here for evaluation of her aortic valve disease. She has had progressive dyspnea on exertion and fatigue, as well as a heart failure admission. Her most recent echocardiogram shows an ejection fraction of 25%, mean gradient 37 mmHg, aortic valve area 0.6 cm?. She has mild coronary disease on cath. Review of Systems Constitutional: Positive for fatigue. Negative for chills and fever. Respiratory: Positive for shortness of breath (HARRIS). Negative for cough. Cardiovascular: Negative for chest pain, palpitations and leg swelling. Gastrointestinal: Negative for abdominal pain, blood in stool and vomiting. Genitourinary: Negative for hematuria. Neurological: Negative for dizziness and syncope. Allergies Allergen Reactions Sulfa Antibiotics Hives Medications Prior to Visit Outpatient Medications Prior to Visit Medication Sig Dispense Refill ascorbic acid (Vitamin C) 500 MG tablet Take 1,000 mg by mouth in the morning. aspirin 81 MG EC tablet 81 mg. atorvastatin (Lipitor) 40 MG tablet 40 mg Nightly. cetirizine (ZyrTEC) 10 MG tablet 10 mg. cholecalciferol (Vitamin D-3) 50 MCG (1999 UT) capsule Take by mouth daily. fluticasone (Flonase) 50 MCG/ACT nasal spray Dose = 1 spray(s), Nostril, each, BID, 0 Refill(s) furosemide (Lasix) 40 MG tablet 40 mg in the morning and 40 mg before bedtime. Melatonin 10 MG capsule 10 mg Nightly. Multiple Vitamin (MULTIVITAMIN ADULT PO) Take by mouth daily. Potassium Bicarb-Citric Acid (Effer-K) 20 MEQ effervescent tablet 20 mEq in the morning and 20 mEq before bedtime. No facility-administered medications prior to visit. Medical History Past Medical History: Diagnosis Date Acute congestive heart failure (CMS/HCC) ([facility]) 03/15/2022 Acute pulmonary edema with heart disease ([facility]) 03/15/2022 Acute respiratory failure with hypoxemia ([facility]) 03/15/2022 Calculus of gallbladder 03/13/2011 Cardiomyopathy ([facility]) 03/15/2022 Hyperlipidemia 03/15/2022 Hypertension 03/15/2022 Hypothyroidism 03/15/2022 Severe aortic valve stenosis 03/15/2022 Tinnitus of both ears 03/15/2022 Vitamin D deficiency 03/15/2022 Social History Tobacco Use Smoking status: Never Smokeless tobacco: Never Substance Use Topics Alcohol use: Yes Alcohol/week: 1.0 standard drink Types: 1 Glasses of wine per week Comment: 1 glass of wine monthly Surgical History Past Surgical History: Procedure Laterality Date APPENDECTOMY CHOLECYSTECTOMY CT HEART CORONARY ANGIOGRAM - WITH PROVISIONAL FFR-CT 03/20/2022 CT ANGIOGRAM TAVR 03/20/[address] [facility] [address] IMAGING HYSTERECTOMY Family History No (more content not included)... [facility] 04-05-2022 Note Pre-procedure phone call made to patient. TAVR procedure and written instructions reviewed/reinforced for procedure Saturday Reminded of 1045 am arrival time Reinforced NPO after midnight Instructions given again to get to [facility] location Reviewed medications Patient verbalized understanding. Instructed to call with any questions/concerns. [facility] 04-04-2022 Note Patient: Hanna tinsley Procedure Information Date/Time: 04/09/22 1245 Procedures: TAVR/TTE TRANSCATHETER AORTIC VALVE REPLACEMENT (TAVR) - OR (Chest) Location: [facility] Operating Room Surgeons: Abdoul Johnson MD; Michelle Yi MD Relevant Problems Cardio (+) Acute congestive heart failure (CMS/HCC) (HCC) (+) Hyperlipidemia (+) Hypertension (+) Severe aortic valve stenosis Endo (+) Hypothyroidism Past Medical History: Past Medical History: 03/15/2022: Acute congestive heart failure (CMS/HCC) (HCC) 03/15/2022: Acute pulmonary edema with heart disease (HCC) 03/15/2022: Acute respiratory failure with hypoxemia (HCC) 03/13/2011: Calculus of gallbladder 03/15/2022: Cardiomyopathy (HCC) 03/15/2022: Hyperlipidemia 03/15/2022: Hypertension 03/15/2022: Hypothyroidism 03/15/2022: Severe aortic valve stenosis 03/15/2022: Tinnitus of both ears 03/15/2022: Vitamin D deficiency Past Surgical History: Past Surgical History: No date: APPENDECTOMY No date: CHOLECYSTECTOMY 03/20/2022: CT HEART CORONARY ANGIOGRAM - WITH PROVISIONAL FFR-CT Comment: CT ANGIOGRAM TAVR 03/20/[address] [facility] [address] IMAGING No date: HYSTERECTOMY Social History: TOBACCO: reports that she has never smoked. She has never used smokeless tobacco. ETOH: reports current alcohol use of about 1.0 standard drink per week. Social History Substance and Sexual Activity Drug Use Never Comment: caffeine: 2 cups coffee daily Family History: No family history on file. Screening: Postmenopausal Clinical information reviewed: Her most recent echocardiogram shows an ejection fraction of 25%, mean gradient 37 mmHg, aortic valve area 0.6 cm?. She has mild coronary disease on cath. Physical Exam Airway Mallampati: III TM distance: >3 FB Neck ROM: full Mouth Open: normal Cardiovascular Dental Pulmonary Abdominal Anesthesia Plan ASA 4 TIVA The patient is not a current smoker. Anesthetic plan and risks discussed with patient. patient is NPO SUZI Screening Labs: Lab Results Component Value Date WBC 6.9 03/20/2022 HGB 13.6 03/20/2022 HCT 41.2 03/20/2022 MCV 94.2 03/20/2022 PLT 300 03/20/2022 Lab Results Component Value Date NA 136 03/20/2022 K 4.6 03/20/2022 CL 101 03/20/2022 CO2 26 03/20/2022 BUN 19 (H) 03/20/2022 CREATININE 0.74 03/20/2022 GLUCOSE 74 03/20/2022 CALCIUM 9.7 03/20/2022 PROT 7.6 03/20/2022 ALKPHOS 72 03/20/2022 AST 29 03/20/2022 ALT 24 03/20/2022 EGFR 87.7 03/20/2022 No components found for: LVEF, LVEFMODE No echocardiogram results found for the past 14 days 03/20/22 ECG 12-LEAD 03/24/2022 7:32 AM (Final) Narrative Sinus Rhythm Voltage criteria for LVH (R(I)+S(III) exceeds 2.00 mV). -ST depression + Nonspecific T-abnormality ABNORMAL Signed by: Abdoul Johnson MD on 03/24/2022 7:32 AM [facility] 04-03-2022 Note Navigator left voice mail for patient to please return call to review lung nodule review conference recommendations and to assist with scheduling next CT scan in 3 months. [facility] 04-03-2022 Note Lung Nodule Multidis ciplinary Review Conference Consensus Recommendation Summary Privileged Information LUNG NODULE CONFERENCE CLINICAL SUMMARY Basic Demographic Information Hanna Knowles Date of presentation : 04/03/22 1950 Presenting physician: Dr. Humza Car 71 y.o. [] Previous presentation date : Presentation Type [] Prospective [] Retrospective [x] Nodule Brief Clinical Summary & Lung Nodule Conference Review Recommendations 8 DashawnHanna hernandez Dx: Lung Nodule Presenter: Dr. Car Clin: T N M Stage: Path: T N M Stage: : 52 Smoking History: [] Current [] Former [x] Never Surg. Onc: Pulm: Dr. Hu Marcelino Med. Onc: TAVR Team: Dr. Yi, Dr. Johnson, Caitie Welch, MAN Imaging and Procedures [] Prospective [] Retrospective Rad. Onc: PCP: Screening: MRI: Summary: 71 yo never smoker had an incidental lung nodule on TAVR planning CT. Referred for urgent LNC workup prior to upcoming TAVR 04/09/22. Outside images obtained and now presents to compare for stability and surgical clearance. Currently planning a 3 month FU if stable. CT C: 03/20/22; 02/18/22 @ [facility] (in PACS) PET: CT A/P: PFT: Other: PATH: Recommendations: 1.)Proceed with TAVR 2.) CT chest in 3 months 3.) If enlarging on f/u, consider Biopsy Available Protocol Recommendation [] Yes Protocol: Report Completed by Kimmie Read RCP 04/03/2022 Lung Nodule Conference Moderator-Toan Grant MD Recommendations from Lung Nodule Multidisciplinary Review Conference are based on national evidence based guidelines. The plan used by the managing physician(s) may vary based on the status of the individual patient and the reports results made available at time of presentation. We recognize that this data set may change and that the final treatment plan may differ from this recommendation. [facility] 03-21-2022 Note TAVR procedure, inst ructions reviewed with pt and spouse. Patient scheduled for TAVR on 04/09/2022 at 1245 Will report to [facility] by 1045 am Can park in the [facility] Parking Deck or use [employer] parking at the [facility] entrance Plan on overnight stay in the hospital Will not be able to drive for 1 week after procedure Will receive moderate sedation through the IV, will be relaxed but awake during the procedure Nothing to eat or drink after midnight Instructed to take morning medications including ASA/Plavix as prescribed with small sip of water EXCEPT to HOLD atorvastatin, lasix, and vitamins/supplements morning of surgery Will call with any questions/concerns Pre-op testing done 03/20/22 Patient/spouse verbalized understanding. [facility] 03-21-2022 Note Please sign case req uest for TAVR Dx: Procedure: TAVR/TTE Date/Time: 04/09/2022 at 1245 Surgeon: PB/SONJA Location: [facility] Admission: A Anesthesia: MAC Authorization submitted via Availity, will await response. [facility] 10-10-2021 Miscellaneous Notes Patient returned call and given providers message below with verbalized understanding. Left message for patient to return call. Rubina Kunz Negative for covid please notify thank you documented in this encounter [facility] 10-09-2021 Note HNO ID: [id number] Author: Madisyn Elise PA-C Service: ? Author Type: Physician Belt Notcher Type: Progress Notes Filed: 10/09/2021 3:58 PM Note Text: 10/09/2021 Patient presents with: Sinus Problem: sinus pressure, drainage, cough x 4 days SUBJECTIVE: This is a 71 year old that is here today for Complaint(s) of sinus pressure and congestion x 4 days. Also has an associated cough. Per patient she always has seasonal allergies and takes an OTC allergy medication regularly. Started when one night there was a skunk smell coming in her open windows. Home COVID test was negative yesterday. Denies fever/chills, sore throat, SOB, wheezing, leg swelling, calf pain, chest pain, pleuritic chest pain. Using OTC cough meds. PAST MEDICAL HISTORY Diagnosis Date - Elevated blood pressure - Elevated cholesterol - Environmental allergies - Hypothyroidism - Incisional hernia without mention of obstruction or gangrene ALLERGIES Sulfa (Sulfonamide Antibiotics) MEDICATIONS Current Outpatient Medications Medication Sig - CRESTOR 40 mg ORAL tablet - Aspirin 81 mg ORAL Tab Take 81 mg by mouth once daily. - levothyroxine (LEVOXYL) 50 mcg ORAL tablet Take 50 mcg by mouth once daily. - omega-3 acid ethyl esters (LOVAZA) 1 gram ORAL capsule Take 1 g by mouth once daily. - valsartan (DIOVAN) 80 mg ORAL tablet Take 80 mg by mouth twice daily. - ascorbic acid (VITAMIN C) 500 mg ORAL tablet Take 500 mg by mouth once daily. - Vitamin E 400 unit ORAL Tab Take by mouth once daily. - DAILY MULTIVITAMIN ORAL Take by mouth once daily. - CALCIUM CARB/VIT D3/MINERALS (CALCIUM-VITAMIN D ORAL) Take by mouth once daily. - benzonatate (TESSALON PERLE) 100 mg capsule Take 2 capsules by mouth three times daily as needed. (Patient not taking: Reported on 10/09/2021 ) - acetaminophen-hydrocodone 5-500 mg ORAL tablet Take 1 tablet by mouth every 4 hours as needed. (Patient not taking: Reported on 11/21/2017 ) - acetaminophen-hydrocodone (VICODIN) 5-500 mg ORAL tablet Take 1-2 tablets by mouth every 6 hours as needed. FOR PAIN (Patient not taking: Reported on 11/21/2017 ) No current facility-administered medications for this visit. SOCIAL HISTORY Social History Tobacco Use - Smoking status: Never Smoker - Smokeless tobacco: Never Used Substance Use Topics - Alcohol use: Yes Comment: RARE, Special Occasions - Drug use: No REVIEW OF SYSTEMS See HPI OBJECTIVE: BP 142/84 Pulse 96 Temp 37 ?C (98.6 ?F) Resp 16 Wt 82.1 kg (181 lb) SpO2 97% APPEARANCE Well appearing, alert, in no acute distress, well-hydrated, well nourished. EYES PERRLA, conjunctiva and sclera normal. EARS External ears normal, canals clear. TMs normal MAYRA NOSE/SINUS Nares normal. Septum midline. Mucosa normal. No drainage or sinus tenderness. THROAT normal, no erythema NECK Supple, no adenopathy; HEART RRR with normal S1 and S2, LUNG clear to auscultation, No wheezing, rhonchi, rales. EXT no LE edema, negative Homans' MAYRA ASSESSMENT/PLAN: 1. Cough - ICD9: 786.2, ICD10: R05.9 Supportive care with fluids and rest Suspect other viral etiology R/o COVID F/u in 5-7 days if not improving, sooner if worsening Reviewed red flags and when to seek care sooner. - BENZONATATE 100 MG CAPSULE - 2019 CORONAVIRUS The patient indicates understanding of these issues and agrees with the plan. Reviewed red flags and when to seek care sooner. Madisyn Elise PA-C [facility] 10-09-2021 History of Present illness Narrative 10/09/2021 Patient presents with: Sinus Problem: sinus pressure, drainage, cough x 4 days SUBJECTIVE: This is a 71 year old that is here today for Complaint(s) of sinus pressure and congestion x 4 days. Also has an associated cough. Per patient she always has seasonal allergies and takes an OTC allergy medication regularly. Started when one night there was a skunk smell coming in her open windows. Home COVID test was negative yesterday. Denies fever/chills, sore throat, SOB, wheezing, leg swelling, calf pain, chest pain, pleuritic chest pain. Using OTC cough meds. PAST MEDICAL HISTORY Diagnosis Date Elevated blood pressure Elevated cholesterol Environmental allergies Hypothyroidism Incisional hernia without mention of obstruction or gangrene ALLERGIES Sulfa (Sulfonamide Antibiotics) MEDICATIONS Current Outpatient Medications Medication Sig CRESTOR 40 mg ORAL tablet Aspirin 81 mg ORAL Tab Take 81 mg by mouth once daily. levothyroxine (LEVOXYL) 50 mcg ORAL tablet Take 50 mcg by mouth once daily. omega-3 acid ethyl esters (LOVAZA) 1 gram ORAL capsule Take 1 g by mouth once daily. valsartan (DIOVAN) 80 mg ORAL tablet Take 80 mg by mouth twice daily. ascorbic acid (VITAMIN C) 500 mg ORAL tablet Take 500 mg by mouth once daily. Vitamin E 400 unit ORAL Tab Take by mouth once daily. DAILY MULTIVITAMIN ORAL Take by mouth once daily. CALCIUM CARB/VIT D3/MINERALS (CALCIUM-VITAMIN D ORAL) Take by mouth once daily. benzonatate (TESSALON PERLE) 100 mg capsule Take 2 capsules by mouth three times daily as needed. (Patient not taking: Reported on 10/09/2021 ) acetaminophen-hydrocodone 5-500 mg ORAL tablet Take 1 tablet by mouth every 4 hours as needed. (Patient not taking: Reported on 11/21/2017 ) acetaminophen-hydrocodone (VICODIN) 5-500 mg ORAL tablet Take 1-2 tablets by mouth every 6 hours as needed. FOR PAIN (Patient not taking: Reported on 11/21/2017 ) No current facility-administered medications for this visit. SOCIAL HISTORY Social History Tobacco Use Smoking status: Never Smoker Smokeless tobacco: Never Used Substance Use Topics Alcohol use: Yes Comment: RARE, Special Occasions Drug use: No REVIEW OF SYSTEMS See HPI OBJECTIVE: BP 142/84 Pulse 96 Temp 37 C (98.6 F) Resp 16 Wt 82.1 kg (181 lb) SpO2 97% APPEARANCE Well appearing, alert, in no acute distress, well-hydrated, well nourished. EYES PERRLA, conjunctiva and sclera normal. EARS External ears normal, canals clear. TMs normal MAYRA NOSE/SINUS Nares normal. Septum midline. Mucosa normal. No drainage or sinus tenderness. THROAT normal, no erythema NECK Supple, no adenopathy; HEART RRR with normal S1 and S2, LUNG clear to auscultation, No wheezing, rhonchi, rales. EXT no LE edema, negative Homans' MAYRA ASSESSMENT/PLAN: 1. Cough - ICD9: 786.2, ICD10: R05.9 Supportive care with fluids and rest Suspect other viral etiology R/o COVID F/u in 5-7 days if not improving, sooner if worsening Reviewed red flags and when to seek care sooner. - BENZONATATE 100 MG CAPSULE - 2019 CORONAVIRUS The patient indicates understanding of these issues and agrees with the plan. Reviewed red flags and when to seek care sooner. Madisyn Elise PA-C documented in this encounter [facility] 01-03-2021 Note HNO ID: [id number] Author: Kay Kirkland PA-C Service: ? Author Type: Physician Belt Notcher Type: Progress Notes Filed: 01/03/2021 3:19 PM Note Text: This note was created using Stand Offerriter. Subjective Hanna Knowles is a 70 year old female. HPI Patient presents with cough, congestion and body aches for 4 days. She denies any known Covid exposure. She is vaccinated for Covid. Denies chest pain or shortness of breath. She states that the congestion in her nose and postnasal drip are what is bothering her the most. The cough started over the past couple days. No wheezing or shortness of breath. She denies a fever. She thought maybe it was allergies at first. She is using nasal saline. She did try an [id number] cough and cold medicine. Review of Systems Constitutional: Negative. HENT: Positive for congestion, postnasal drip, rhinorrhea and sore throat. Negative for ear pain. Respiratory: Positive for cough. Negative for shortness of breath. Cardiovascular: Negative. Gastrointestinal: Negative. Genitourinary: Negative. Musculoskeletal: Positive for myalgias. Skin: Negative. All other systems reviewed and are negative. PAST MEDICAL HISTORY Diagnosis Date - Elevated blood pressure - Elevated cholesterol - Environmental allergies - Hypothyroidism - Incisional hernia without mention of obstruction or gangrene Current Outpatient Medications Medication Sig Dispense Refill - CRESTOR 40 mg ORAL tablet - Aspirin 81 mg ORAL Tab Take 81 mg by mouth once daily. - levothyroxine (LEVOXYL) 50 mcg ORAL tablet Take 50 mcg by mouth once daily. - omega-3 acid ethyl esters (LOVAZA) 1 gram ORAL capsule Take 1 g by mouth once daily. - valsartan (DIOVAN) 80 mg ORAL tablet Take 80 mg by mouth twice daily. - ascorbic acid (VITAMIN C) 500 mg ORAL tablet Take 500 mg by mouth once daily. - Vitamin E 400 unit ORAL Tab Take by mouth once daily. - DAILY MULTIVITAMIN ORAL Take by mouth once daily. - CALCIUM CARB/VIT D3/MINERALS (CALCIUM-VITAMIN D ORAL) Take by mouth once daily. - benzonatate (TESSALON PERLE) 100 mg capsule Take 2 capsules by mouth three times daily as needed. 30 capsule 0 - acetaminophen-hydrocodone 5-500 mg ORAL tablet Take 1 tablet by mouth every 4 hours as needed. (Patient not taking: Reported on 11/21/2017 ) 20 tablet 0 - acetaminophen-hydrocodone (VICODIN) 5-500 mg ORAL tablet Take 1-2 tablets by mouth every 6 hours as needed. FOR PAIN (Patient not taking: Reported on 11/21/2017 ) 30 tablet 0 No current facility-administered medications for this visit. PAST SURGICAL HISTORY Procedure Laterality Date - APPENDECTOMY - LAP CHOLECYSTECT/CHOLANGIOGRAPHY 03/27/11 normal IOC - REMOVE TONSILS/ADENOIDS,<12 Y/O - REPAIR INCIS HERNIA W MESH 10/07/08 - REPAIR INCISIONAL HERNIA,REDUCIBLE 10/07/08 - REPAIR ING HERNIA,5+Y/O,REDUCIBL Hernia repair, inguinal RIH - TOTAL ABDOM HYSTERECTOMY Hysterectomy, SALLY FAMILY HISTORY Problem Relation Age of Onset - Heart Father - Heart Brother AT 43 - Arthritis Mother - Arthritis Maternal Grandmother - Arthritis Paternal Grandmother - Hearing Loss Mother - Hearing Loss Paternal Grandmother - Lipids Mother - Lipids Maternal Grandmother - Lipids Brother - Stroke Paternal Grandmother Social History Tobacco Use - Smoking status: Never Smoker - Smokeless tobacco: Never Used Substance Use Topics - Alcohol use: Yes Comment: RARE, Special Occasions - Drug use: No Objective BP 142/84 Pulse 95 Temp 36.9 ?C (98.4 ?F) (Tympanic) Resp 18 Wt 83.6 kg (184 lb 6.4 oz) SpO2 95% Physical Exam Vitals reviewed. Constitutional: Appearance: Normal appearance. HENT: Head: Normocephalic and atraumatic. Right Ear: Tympanic membrane, ear canal and external ear normal. Left Ear: Tympanic membrane, ear canal and external ear normal. Nose: Congestion present. Mouth/Throat: Mouth: Mucous membranes are moist. Pharynx: Oropharynx is clear. Cardiovascular: Rate and Rhythm: Normal rate and regular rhythm. Heart sounds: Normal heart sounds. Pulmonary: Effort: Pulmonary effort is normal. Breath sounds: Normal breath sounds. Musculoskeletal: Cervical back: Neck supple. Lymphadenopathy: Cervical: No cervical adenopathy. Skin: General: Skin is warm and dry. Findings: No rash. Neurological: General: No focal deficit present. Mental Status: She is alert and oriented to person, place, and time. Assessment and Plan ASSESSMENT/PLAN: 1. Viral URI - ICD9: 465.9, ICD10: J06.9 - Discussed viral etiology and rationale for treatment. - Symptomatic treatment with prn analgesia - Supportive care with fluids and rest - Follow up in 3-5 days if symptoms persist or sooner if worsening of symptoms - 2019 CORONAVIRUS testing done today. Recommended trying claritin and flonase otc. Kay Kirkland PA-C [facility] Evaluation + Plan note Future Appointments Appointment Date:04/20/2022 11:30:00 AM Scheduled Provider:EMILY SMITH DO Location:[facility] Appointment Type:PC OV Follow Up Diagnostic Tests PendingVitamin B12 Level 03/08/22 [facility] Evaluation + Plan note Future Appointments Appointment Date:05/24/2022 11:00:00 AM Scheduled Provider:EMILY SMITH DO Location:[facility] Appointment Type:PC OV [facility] Evaluation + Plan note Future Appointments Appointment Date:11/13/2022 10:00:00 AM Scheduled Provider:EMILY SMITH DO Location:[facility] Appointment Type:PC Wellness Medicare [facility] [place] [place] [facility] Diagnosis Lung nodule seen on imaging study [facility] Narrative No data available for this section [facility] Discharge instructions No data available for this section [facility] Progress note No data available for this section [facility] Advance Directives No Advanced Directives Records FoundDocuments on File Type Date Recorded Patient Regulatory Analyst Expl anation Advance Directive(s) Latest Code Status on File Code Status Date Activated Date Inactivated Comments Full Code 04/09/2022 11:10 AM 04/10/2022 10:48 PM Latest Code Status on File Code Status Date Activated Date Inactivated Comments Full Code 04/09/2022 11:10 AM 04/10/2022 10:48 PM Summary Purpose Family History No Family History Records FoundNo Family History Records FoundNo Family History Records Found Reason for Referral Specialty Diagnoses / Procedures Referred By Tony john Referred To Contact Radiology Diagnoses Lung nodule seen on imaging study Procedures CT chest wo IV contrast Carlene Welch APRN - PARTY DIRECT[employer] [address] [place] [address] Referral ID Status Reason Start Date Expiration Date Visits Re quested Visits Authorized [id number] Closed 03/30/2022 09/26/2022 1 1 Additional Source Comments Source Comments (unrecognize d section and content) In the event this informatio n is protected by the Federal Confidentiality of Alcohol and Drug Abuse Patient Records regulations: The Federal rules restrict any use of the information to criminally investigate or prosecute any alcohol or drug abuse patient.[facility] the event this information is protected by the Federal Confidentiality of Alcohol and Drug Abuse Patient Records regulations: The Federal rules restrict any use of the information to criminally investigate or prosecute any alcohol or drug abuse patient.[facility] Reason for Visit (unrecogniz ed section and content) Reason Comments Results Reason Onset Date Comments Care Coordination 06/25/2022 Lung Nodule Fo llow Up- Certified Letter sent Specialty Diagnoses / Procedures Referred By Contac t Referred To Contact Radiology Diagnoses Lung nodule seen on imaging study Procedures CT chest wo IV contrast Carlene Welch, NADIA - PARTY DIRECTOR [address] [place] [address] Referral ID Status Reason Start Date Expiration Date Visits Re quested Visits Authorized [id number] Closed 03/30/2022 09/26/2022 1 1 INFORMATION SOURCE (unrecogn ized section and content) DATE CREATED AUTHOR AUTHOR'S ORGANIZ ATION 09/12/2022 [facility] DATE CREATED AUTHOR AUTHOR'S ORGANIZ ATION 03/13/2023 [facility] ([place] Care Team (unrecognized sect ion and content) Care Team Personnel Name: EMILY SMITH DO Position: P4 Physician - Primary Care Member Role: Primary Care Physician Address: Address: [address] [place] [address] Care Team Related Persons Name: MANN HUTCHINS Address: [place] Care Team Personnel Name: EMILY SMITH DO Position: P4 Physician - Primary Care Member Role: Primary Care Physician Address: Address: [address] [place] [address] Care Team Related Persons Name: MANN HUTCHINS Address: Home [place], [place] Care Team Personnel Name: EMILY SMITH DO Position: P4 Physician - Primary Care Member Role: Primary Care Physician Address: Address: [address] [place] [address] Care Team Related Persons Name: MANN HUTCHINS Address: Home [place], [place] Care Teams (unrecognized sec tion and content) Manager Of Radiology Relationship Specialty Start Date End Date No, Pcp [address] [place] [address] PCP - General 03/20/22 Emily Smith [address] [place] [address] Sleep Medicine 03/20/22 Dr. Smith Primary Care Provider 04/29/22 Manager Of Radiology Relationship Specialty Start Date End Date No, Pcp [address] [place] [address] PCP - General 03/20/22 Emily Smith [address] [place] [address] Sleep Medicine 03/20/22 Dr. Smith Primary Care Provider 04/29/22 Manager Of Radiology Relationship Specialty Start Date End Date Inc, [facility] [address] [place] [address] PCP - General 03/20/22 Emily Smith [address] [place] [address] Sleep Medicine 03/20/22 Dr. Smith Primary Care Provider 04/29/22 FOR RECORDS PERTAINING TO PATIENTS WHO ARE OR HAVE BEEN ENROLLED IN A CHEMICAL DEPENDENCY/SUBSTANCEABUSE PROGRAM, SOME INFORMATION MAY BE OMITTED. This clinical summary was aggregated from multiple sources. Caution should be exercised in using it in the provision of clinical care. This summary normalizes information from multiple sources, and as a consequence, information in this document may materially change the coding, format and clinical context of patient data. In addition, data may be omitted in some cases. CLINICAL DECISIONS SHOULD BE BASED ON THE PRIMARY CLINICAL RECORDS. [facility]. provides no warranty or guarantee of the accuracy or completeness of information in this document.
== END | disposition home or self-care (01) ==
PROVIDERS: PCP Student in an Organized Health Care Education/Training Program; Referring Provider Nurse Practitioner Gerontology; Visit Provider Nurse Practitioner Gerontology
DX: I35.0 Nonrheumatic aortic (valve) stenosis (principal); Z95.2 Presence of prosthetic heart valve
CPT/HCPCS: 93306; Q9957; A4216; C8929

== ENCOUNTER → 2025-01-19 | Outpatient (CLI) | payer MEDICARE, SELFPAY ==
[2022-07-20 10:41] VITALS: BMI 32.2
--- NOTE | 2025-01-19 11:01 | ECHOD_ITS ---
Reason For Study Reason For Study: Valve Replacement Eval Procedure This was a 2D Doppler, Color Flow transthoracic echocardiogram. Exam performed in department. Left Ventricle Normal LV size. The left ventricular ejection fraction is 65 %. Stage 2 diastolic dysfunction. No regional wall motion abnormalities noted. Right Ventricle Normal RV size. Normal systolic function. Atria Normal left atrium. Normal right atrium. Mitral Valve Normal mitral valve. Tricuspid Valve Normal tricuspid valve. Mild (1+) tricuspid valve insufficiency. Pulmonary artery systolic pressure is 30 mmHg. Aortic Valve Peak aortic valve gradient 21 mmHg. Mean aortic valve gradient 12 mmHg. Bioprosthetic aortic valve. Pulmonic Valve Normal pulmonic valve. Great Vessels Normal aortic root. The pulmonary artery is normal size. Normal inferior vena cava. Pericardium/Pleural No pericardial effusion. MMode/2D Measurements & Calculations LVIDd: 4.0 cm IVSd: 0.92 cm LVOT diam: 1.8 cm LVIDs: 2.4 cm LVPWd: 0.95 cm LVOT area: 2.5 cm2 RVDd: 3.7 cm FS: 40.3 % Ao root diam: 3.0 cm LAV(MOD-bp): 38.7 ml LVAd ap4: 20.0 cm2 LAV(MOD-bp) Indexed: 20.6 ml/m2 LVLd ap4: 6.6 cm LAV(MOD-sp2): 39.1 ml EDV(MOD-sp4): 50.3 ml LAV(MOD-sp4): 38.4 ml EDV(sp4-el): 51.7 ml LVAs ap4: 10.5 cm2 LVLs ap4: 5.5 cm ESV(MOD-sp4): 16.7 ml ESV(sp4-el): 16.9 ml EF(MOD-sp4): 66.9 % EF(sp4-el): 67.3 % SV(MOD-sp4): 33.6 ml SV(sp4-el): 34.8 ml LA A4 area: 14.1 cm2 SI(MOD-sp4): 17.9 ml/m2 LA dimension(2D): 4.4 cm RA A4 area: 8.6 cm2 TAPSE: 2.0 cm Time Measurements MV dec time: 0.21 sec Doppler Measurements & Calculations MV E max joaquin: 86.8 cm/sec Lat Peak E' Joaquin: 5.9 cm/sec Med Peak E' Joaquin: 5.7 cm/sec MV A max joaquin: 80.7 cm/sec E/E' lat: 14.8 E/E' med: 15.2 MV E/A: 1.1 MV V2 max: 104.5 cm/sec Ao V2 max: 226.4 cm/sec MV max P.4 mmHg MV dec slope: 413.2 cm/sec2 Ao max P.6 mmHg MV V2 mean: 67.2 cm/sec Ao V2 mean: 167.6 cm/sec MV mean P.0 mmHg Ao mean P.3 mmHg MV V2 VTI: 30.2 cm Ao V2 VTI: 47.0 cm AV (velocity ratio): 0.52 MVA(VTI): 2.1 cm2 MELINDA(I,D): 1.3 cm2 MELINDA(V,D): 1.2 cm2 LV V1 max: 102.6 cm/sec SV(LVOT): 62.1 ml PA V2 max: 98.9 cm/sec LV V1 max P.2 mmHg LV V1 mean P.8 mmHg LV V1 mean: 81.1 cm/sec LV V1 VTI: 24.5 cm PI end-d joaquin: 104.6 cm/sec TR max joaquin: 252.2 cm/sec TR max P.8 mmHg ECHO/Echo Complete Interpretation Summary Normal LV size. The left ventricular ejection fraction is 65 %. Stage 2 diastolic dysfunction. Mean aortic valve gradient 12 mmHg. Bioprosthetic aortic valve. Ordering Physician: Estella Esquivel Referring Physician: Akhil Smith Performed By: Jessica Bueno, [place], RVT
== END | disposition home or self-care (01) ==
LOC: CVS 10:59
PROVIDERS: PCP Student in an Organized Health Care Education/Training Program; Referring Provider Nurse Practitioner Gerontology; Visit Provider Nurse Practitioner Gerontology
DX: Z95.2 Presence of prosthetic heart valve (principal)
CPT/HCPCS: 93306